=== PATIENT | female | born 1935 | race American Indian/Alaskan Native ===

== ENCOUNTER 2017-02-09 12:48 | Emergency (ER) | payer OTHER ==
[2017-02-09] MEDS ORDERED: HYDROCODONE/APAP 5/325 TAB PO ONE (12:54)
--- NOTE | 2017-02-09 12:58 | EDPHY ---
H & P HPI/ROS: HPI CHIEF COMPLAINT: Left hip pain, right knee pain status post fall a week ago. HISTORY OF PRESENT ILLNESS: This patient 81-year-old female, significant past medical history for COPD, AFib, chronic pain, presents to the emergency room with right knee pain and left hip pain after a mechanical trip and fall approximately a week ago. She is continue have pain. She is able to ambulate with a walker. EMS reports she is at her neurological baseline. She does take Aricept. Main complaint left hip pain and right knee pain. Past Medical History: Anemia, COPD hypertension, encephalopathy, Past Surgical History: No recent surgery Social History: Lives at [facility]. Family History: Noncontributory ROS REVIEW OF SYSTEMS: A comprehensive 10 point review of systems is otherwise negative aside from elements mentioned in the history of present illness. Exam Constitutional appears well nontoxic, triage nursing summary reviewed, vital signs reviewed, awake/alert. Eyes normal conjunctivae and sclera, EOMI, PERRLA. HENT normal inspection, atraumatic, moist mucus membranes, no epistaxis, neck supple/ no meningismus, no raccoon eyes. Respiratory clear to auscultation bilaterally, normal breath sounds, no respiratory distress, no wheezing. Cardiovascular rate normal, regular rhythm, no murmur, no edema, distal pulses normal. Gastrointestinal soft, non-tender, no rebound, no guarding, normal bowel sounds, no distension, no pulsatile mass. Genitourinary no CVA tenderness. Musculoskeletal mild tender palpation left lateral hip, and tender palpation over the anterior right knee, no significant signs of trauma exam, right leg is neurovascular intact full range of motion, left leg neurovascular intact warm, good cap refill. Good pulse. no calf swelling, no tenderness of extremities, no meningismus, good pulses, neurovascularly intact. Skin pink, warm, & dry, no rash, skin atraumatic. Neurologic awake, alert and oriented x 3, AAOx3, moves all 4 extremities equally, motor intact, sensory intact, CN II-XII intact, normal cerebellar, normal vision, normal speech. Psychiatric normal mood/affect. Heme/Lymph/Immune no lymphadenopathy. Differential Diagnosis: Includes but is not limited to in a particular order hip fracture, hip contusion, right knee fracture, right knee contusion. Medical Decision Making: Plan for this patient [place] p. o., and x-ray right knee and left hip. Re-evaluation: 1409: Re-evaluation at this time patient resting comfortably. I reviewed the x -rays of the hip and knee. There is hardware present. This is from previous surgeries. I do not appreciate any acute new fracture. I feel that she can go home. She appears well nontoxic she is eating here in the emergency room. No evidence of significant trauma on exam. Or x-rays. Source: Patient, EMS - Personal History Tetanus Vaccine Date: 2002 - Medical/Surgical History Hx Asthma: No Hx Chronic Respiratory Disease: Yes Hx Diabetes: No Hx Cardiac Disease: Yes Hx Renal Disease: No Hx Cirrhosis: No Hx Alcoholism: No Hx HIV/AIDS: No Hx Splenectomy or Spleen Trauma: No Other PMH: pacemaker, afib, COPD, home O2, chronic pain, spinal surgrey, constipation, hyperlipidemia, pulmonary hypertension, HYPOTHYROID, anxiety orthostatic hypotension, DVT, gait instability, C. difficile colitis - Social History Smoking Status: Former smoker Constitutional: Initial Vital Signs Temperature (C) 36.9 C 02/09/17 12:58 Heart Rate 78 02/09/17 12:58 Respiratory Rate 16 02/09/17 12:58 Blood Pressure 118/76 02/09/17 12:58 O2 Sat (%) 97 02/09/17 12:58 O2 Delivery Mode Nasal Cannula O2 (L/minute) 2 Allergies/Adverse Reactions: Ztlsohe-Amu-Cwz Reductase Inhibitor Allergy (Unknown, Verified 05/18/16 05:34) Sulfa (Sulfonamide Antibiotics) Allergy (Unknown, Verified 05/18/16 05:34) atorvastatin calcium [From Lipitor] Allergy (Verified 05/18/16 05:34) ciprofloxacin [From Cipro] Allergy (Verified 05/18/16 05:34) ciprofloxacin HCl [From Cipro] Allergy (Verified 05/18/16 05:34) Estrogens Allergy (Verified 05/18/16 05:34) Nitrofuran Analogues Allergy (Verified 05/18/16 05:34) nitrofurantoin Allergy (Verified 05/18/16 05:34) potassium Allergy (Verified 05/18/16 05:34) LEG CRAMPS,GI Quinolones Allergy (Verified 05/18/16 05:34) Home Medications: Medication Instructions Recorded Docusate Sodium [Colace 100 MG (*)] 100 mg PO BID 12/12/14 Ondansetron Odt [Zofran Odt 4 mg 8 mg PO Q8 PRN 12/12/14 (*)] Cholecalciferol Vit D3 [Vitamin D3 1,000 unit PO DAILY 01/02/15 (*)] Polyethylene Glycol 3350 [Miralax 17 gm PO BID 04/06/15 17 gm (*)] Ascorbic Acid [Vitamin C 500 mg 500 mg PO DAILY 09/28/15 (*)] Acetaminophen [Tylenol 325mg (*)] 650 mg PO Q6 PRN #0 tab 10/03/15 DULoxetine [Cymbalta 60 MG (*)] 60 mg PO HS 04/21/16 Gabapentin [Neurontin] 600 mg PO TID 04/21/16 Tobramycin 0.3% [Tobrex 0.3% opht 2 drops LEFTEYE Q4WA 04/21/16 drops (*)] Cephalexin [Keflex (*)] 500 mg PO TID #0 cap 04/23/16 Levothyroxine [Synthroid 112 mcg 112 mcg PO DAILY AT 6AM #0 tab 04/23/16 (*)] ALPRAZolam [Xanax 1 MG (*)] 0.5 mg PO HS PRN #0 tab 05/19/16 HYDROmorphone HCL [Dilaudid 4 mg 4 mg PO Q6HRS PRN #0 tab 05/19/16 (*)] Medical Decision Making - Data Points Medications Given: Discontinued Medications Hydrocodone Bitart/Acetaminophen ([place] 5/325) 1 tab PO EDNOW ONE Stop: 02/09/17 12:55 Last Admin: 02/09/17 13:03 Dose: 1 tab Departure - Departure Disposition: Home, Routine, Self-Care Clinical Impression: Multiple contusions Fall Qualifiers: Encounter type: initial encounter Qualified Code(s): W19.XXXA - Unspecified fall, initial encounter Condition: Good Instructions: Fall Prevention (ED), Contusion in Adults (ED) Additional Instructions: The x-ray of the right knee and left hip are unremarkable for fracture. Referrals: Patient,NotPresent [Unknown] - As per Instructions
[2017-02-09 13:00] VITALS: RESP 16
[2017-02-09 14:53] VITALS: BP 155/78; PULSE 81; TEMP 97.7; O2SAT 98
== END 2017-02-09 14:53 | disposition home or self-care (01) ==
LOC: EDUNIT#
DX: S80.01XA Contusion of right knee, initial encounter (principal); S70.02XA Contusion of left hip, initial encounter; I10 Essential (primary) hypertension; J44.9 Chronic obstructive pulmonary disease, unspecified; Z95.0 Presence of cardiac pacemaker; Z87.891 Personal history of nicotine dependence; W01.0XXA Fall on same level from slipping, tripping and stumbling without subsequent striking against object, initial encounter

== ENCOUNTER 2017-05-30 20:25 | Observation (INO) | payer OTHER ==
[2017-05-30] MEDS ORDERED: LIDOCAINE 2% JELLY 20 ML (UROJECT) ONE (20:58)
[2017-05-30] MEDS ORDERED: BISACODYL 10 MG SUPP PR PRN (23:15)
[2017-05-30] MEDS ORDERED: MAGNESIUM HYDROXIDE 30 ML UDCUP PO PRN (23:15)
[2017-05-30] MEDS ORDERED: ONDANSETRON 4 MG/2 ML VIAL IVP PRN (23:15)
[2017-05-30] MEDS ORDERED: LACTULOSE 20 GM/30 ML UDCUP PO PRN (23:15)
[2017-05-30] MEDS ORDERED: ACETAMINOPHEN 325 MG TAB PO PRN (23:15)
[2017-05-30] MEDS ORDERED: ALPRAZolam 0.25 MG TAB PO PRN (23:19)
--- NOTE | 2017-05-30 23:51 | EDPHY ---
H & P Stated Complaint: constipation, abd pain HPI/ROS: Chief complaint: Constipation History of present illness: This is an 82-year-old female who presents to the emergency department with family for constipation. Patient has a long history of problems with her bowel movements. 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 She does not normally go every day. She usually has to use multiple supplements including Colace and MiraLax to have a bowel movement. However she has not had a bowel movement in the last 9 days. She reports significant discomfort in the abdomen and rectal area. She has attempted to pull some stool out on her own at home but this has not resolve the problem. She denies other associated signs or symptoms including no fevers , no nausea or vomiting. Review of systems: A 10 point review of systems was obtained and other than described above was negative - Personal History Current Tetanus/Diphtheria Vaccine: Unsure Tetanus Vaccine Date: 2002 - Medical/Surgical History Hx Asthma: No Hx Chronic Respiratory Disease: Yes Hx Diabetes: No Hx Cardiac Disease: Yes Hx Renal Disease: No Hx Cirrhosis: No Hx Alcoholism: No Hx HIV/AIDS: No Hx Splenectomy or Spleen Trauma: No Other PMH: pacemaker, afib, COPD, home O2, chronic pain, spinal surgrey, constipation, hyperlipidemia, pulmonary hypertension, HYPOTHYROID, anxiety orthostatic hypotension, DVT, gait instability, C. difficile colitis - Social History Smoking Status: Former smoker Constitutional: Initial Vital Signs Temperature (C) 36.9 C 05/30/17 20:29 Heart Rate 86 05/30/17 20:29 Respiratory Rate 18 05/30/17 20:29 Blood Pressure 141/80 H 05/30/17 20:29 O2 Sat (%) 93 05/30/17 20:29 O2 Delivery Mode Nasal Cannula O2 (L/minute) 2 Allergies/Adverse Reactions: Zipdyrk-Tdi-Vol Reductase Inhibitor Allergy (Unknown, Verified 05/30/17 20:32) Sulfa (Sulfonamide Antibiotics) Allergy (Unknown, Verified 05/30/17 20:32) atorvastatin calcium [From Lipitor] Allergy (Verified 05/30/17 20:32) ciprofloxacin [From Cipro] Allergy (Verified 05/30/17 20:32) ciprofloxacin HCl [From Cipro] Allergy (Verified 05/30/17 20:32) Estrogens Allergy (Verified 05/30/17 20:32) Nitrofuran Analogues Allergy (Verified 05/30/17 20:32) nitrofurantoin Allergy (Verified 05/30/17 20:32) potassium Allergy (Verified 05/30/17 20:32) LEG CRAMPS,GI Quinolones Allergy (Verified 05/30/17 20:32) Home Medications: Medication Instructions Recorded Docusate Sodium [Colace 100 MG (*)] 100 mg PO BID 12/12/14 Ondansetron Odt [Zofran Odt 4 mg 8 mg PO Q8 PRN 12/12/14 (*)] Cholecalciferol Vit D3 [Vitamin D3 1,000 unit PO DAILY 01/02/15 (*)] Polyethylene Glycol 3350 [Miralax 17 gm PO BID 04/06/15 17 gm (*)] Ascorbic Acid [Vitamin C 500 mg 500 mg PO DAILY 09/28/15 (*)] Acetaminophen [Tylenol 325mg (*)] 650 mg PO Q6 PRN #0 tab 10/03/15 DULoxetine [Cymbalta 60 MG (*)] 60 mg PO HS 04/21/16 Gabapentin [Neurontin] 600 mg PO TID 04/21/16 Tobramycin 0.3% [Tobrex 0.3% opht 2 drops LEFTEYE Q4WA 04/21/16 drops (*)] Cephalexin [Keflex (*)] 500 mg PO TID #0 cap 04/23/16 Levothyroxine [Synthroid 112 mcg 112 mcg PO DAILY AT 6AM #0 tab 04/23/16 (*)] ALPRAZolam [Xanax 1 MG (*)] 0.5 mg PO HS PRN #0 tab 05/19/16 HYDROmorphone HCL [Dilaudid 4 mg 4 mg PO Q6HRS PRN #0 tab 05/19/16 (*)] Medical Decision Making - Diagnostics Imaging Results: Imaging Impressions Abdomen X-Ray 05/30/17 22:32 Impression: 1. Query constipation. 2. See above report for additional findings. Imaging: I viewed and interpreted images myself Procedures: Procedure: Fecal disimpaction. Patient presents constipated. Rectal exam reveals significant impaction. Verbal consent is obtained. Uro jet of lidocaine is instilled for comfort. Significant stool is removed with my gloved fingers. The procedure caused patient significant discomfort. ED Course/Re-evaluation: Patient discussed with my primary supervising physician Dr. Liana Zayas. Patient presents to the emergency department for severe constipation. She is nontoxic. Rectal exam does reveal severe impaction. I have performed extensive disimpaction and removed and extensive amount of stool. However it has gotten to the point that patient can no longer tolerate the pain of disimpaction despite using Uro jets with lidocaine. She is given soapsuds enema and has a large bowel movement. Still significant stool noted in the rectal vault. I do not believe she can be appropriately disimpacted and cleared out in the emergency department. She is in significant discomfort. She will be admitted to the hospitalist service for further care. The plan has been discussed with the patient who voiced understanding and agreement with it. Differential Diagnosis: Included but not limited to constipation, obstipation, fecal impaction, bowel obstruction Departure - Departure Disposition: [facility] Acute Clinical Impression: Constipated Qualifiers: Constipation type: unspecified constipation type Qualified Code(s): K59.00 - Constipation, unspecified Condition: Good
[2017-05-31 04:51] LABS: % IMMATURE GRANULYOCYTES 0.3 % (0.0-1.1); ABSOLUTE IMMATURE GRANULOCYTES 0.01 10^3/uL (0.00-0.10); ADD DIFF? NO; ADD MORPH? NO; ADD SCAN? NO; ATYPICAL LYMPHOCYTE FLAG 20 (0-99); FRAGMENT RBC FLAG 0 (0-99); HEMATOCRIT 29.4 % (38.0-47.0); HEMOGLOBIN 9.5 g/dL (12.6-16.3); LEFT SHIFT FLG 0 (0-99); LIPEMIA HEMOLYSIS FLAG 80 (0-99); MEAN CELL HEMOGLOBIN 29.9 pg (27.9-34.1); MEAN CELL HEMOGLOBIN CONCENTR. 32.3 g/dL (32.4-36.7); MEAN CELL VOLUME 92.5 fL (81.5-99.8); MEAN PLATELET VOLUME 9.4 fL (8.7-11.7); PLATELET CLUMPS FLAG 0 (0-99); PLATELET COUNT 101 10^3/uL (150-400); RED BLOOD CELL COUNT 3.18 10^6/uL (4.18-5.33)
[2017-05-31 05:07] LABS: ALANINE AMINOTRANSFERASE 28 IU/L (9-52); ALBUMIN 3.6 g/dL (3.5-5.0); ALKALINE PHOSPHATASE 72 IU/L (38-126); ANION GAP 12 mEq/L (8-16); ASPARTATE AMINOTRANSFERASE 21 IU/L (14-46); BILIRUBIN,TOTAL 0.9 mg/dL (0.1-1.4); CARBON DIOXIDE 33 mEq/l (22-31); CHLORIDE 101 mEq/L (97-110); CREATININE 0.8 mg/dL (0.6-1.0); GLOMERULAR FILTRATION RATE > 60; GLUCOSE 92 mg/dL (70-100); POTASSIUM 4.1 mEq/L (3.5-5.2); SODIUM 146 mEq/L (134-144); TOTAL PROTEIN 5.8 g/dL (6.3-8.2)
[2017-05-31 05:16] VITALS: RESP 16
[2017-05-31] MEDS ORDERED: SENNOSIDES/DOCUSATE SODIUM TAB PO SCH (09:00)
[2017-05-31] MEDS ORDERED: ENOXAPARIN 40 MG/0.4 ML SYR SC SCH (09:00)
--- NOTE | 2017-05-31 09:19 | GHP ---
[f rep st] HISTORY AND PHYSICAL DATE OF ADMISSION: 05/30/2017 DATE OF SERVICE: 05/31/2017 SOURCE: Patient provides history, appears reliable. Patient's case was discussed with ED provider and EMR was also reviewed. CHIEF COMPLAINT: Constipation. HISTORY OF PRESENT ILLNESS: This is a very pleasant 82-year-old female with past medical history significant for chronic constipation with a history of several spine surgeries for resection of schwannoma, atrial fibrillation status post pacer, pulmonary hypertension, COPD on chronic oxygen supplementation, chronic pain, hyperlipidemia, hypothyroidism, anxiety who presents to the emergency department today with complaints of worsening generalized abdominal pain. Patient reports she has not had a bowel movement in 9 days. She does have a history of chronic constipation. She has not had any fevers, chills, but has had occasional nausea with worsening abdominal distention and generalized pain and aching. The patient denies any previous history of GI bleeding. No hematemesis. Has had occasional chills but no fevers. Patient is on a chronic bowel regimen consisting of MiraLAX 2 to 3 times per day, Colace twice a day, but has struggled with constipation for multiple years. In the emergency department, the patient was noted to be significantly impacted. ER provider attempted digital disimpaction for some length of time with success of removal of a little bit of stool. The patient subsequently underwent multiple enemas in the emergency department, soapsuds enema with a large bowel movement and improvement in her abdominal pain. The patient continued to have a significant amount of stool remaining on imaging and patient is admitted for assistance with further bowel regimen and enemas. REVIEW OF SYSTEMS: Significant for occasional chills, no fevers, and headache without any numbness, tingling, or focal deficits. Otherwise, remainder review of systems negative except as noted above. ALLERGIES: Multiple including statins, ciprofloxacin, estrogens, nitrofurantoin , potassium, quinolones. HOME MEDICATIONS: As per EMR. Tobramycin 0.3% drops ophthalmic in the left eye every 4 hours, MiraLAX 17 g p.o. 2 to 3 times daily p.r.n., Zofran ODT 8 mg p.o. q.8 hours p.r.n., levothyroxine 12 mcg p.o. daily in the morning, Dilaudid 4 mg p.o. q.6 hours p.r.n., gabapentin 600 mg p.o. t.i.d., docusate 100 mg p.o. b.i.d., duloxetine 60 mg p.o. q.h.s., vitamin D3 1000 units p.o. daily. Keflex 500 mg p.o. t.i.d., ascorbic acid 500 mg p.o. daily, Tylenol 325, 650 mg p.o. q.6 hours p.r.n. Please note, med rec has not yet been reconciled by the pharmacy. PAST MEDICAL HISTORY: Significant for: 1. Atrial fibrillation, chronic, status post pacer. 2. Pulmonary hypertension. 3. COPD with chronic oxygen dependence 2 L/minute. 4. Chronic pain with chronic narcotic use. 5. Chronic constipation, opiate induced versus possibly even neurogenic bowel. 6. History of schwannoma status post resection and revision. 7. Hyperlipidemia. 8. Hypothyroidism. 9. Anxiety. 10. Orthostatic hypotension. 11. History of DVT. 12. History of C diff colitis. 13. Peripheral neuropathy. PAST SURGICAL HISTORY: Significant for spine surgery for resection of a schwannoma x2, pacer placement. FAMILY HISTORY: Patient is adopted. She does not know her family history. She does have 2 adult children, 60 and 57, who are both healthy without medical issues that she is aware of. SOCIAL HISTORY: Patient lives in assisted living facility [place] [facility]. She does not smoke, drink, or do drugs. She quit smoking several years ago and has 20- pack-year history. CODE STATUS: Extensive discussion with the patient. She desires to be a DNR/ DNI, but she acknowledges that her children would not appreciate this decision. She is interested in considering it and formally putting it into advance directives. However, she would prefer to leave her code status as full at this time until she can have further discussions with provider and her children regarding her wishes to be a DNR, so that they are aware of and respectful of her wishes to not have any aggressive resuscitation. PHYSICAL EXAMINATION: VITAL SIGNS: Upon arrival to the emergency department, blood pressure 141/80, heart rate 86, respiratory rate 18, O2 saturation 93% on 3 L by nasal cannula with temperature 36.9. Vitals current available at time of interview: Blood pressure 117/78, heart rate 77, respiratory rate 16, O2 saturation 94% on 2 L by nasal cannula, temperature 36.9: GENERAL: No acute distress. Very pleasant, obese elderly female, is lying quietly in bed. She appears chronically ill, but awake and interactive. HEENT: Normocephalic, atraumatic. Eyes: Extraocular muscles are intact. Pupils equal, round, reactive to light bilaterally and symmetric. No scleral icterus or conjunctival injection. ENT: Mucous membranes appear moist. No oropharyngeal erythema or exudates. NECK: Supple, trachea midline. CV: Slightly distant heart sounds secondary to body habitus. Regular rate and rhythm. RESPIRATORY: Lungs are clear to auscultation bilaterally. No wheezes, rales, or rhonchi. Unlabored breathing. ABDOMEN: Obese, soft, but full. Minimal discomfort to palpation in the lower abdomen, but no rebound, guarding, or masses appreciated. : No Dickens in place. No suprapubic tenderness to palpation. EXTREMITIES: Patient with 2+ pitting edema bilateral lower feet and ankles and lesser degree on her legs bilaterally. MUSCULOSKELETAL: Patient with generalized deconditioning and weakness. Moves all extremities while lying in bed. NEURO: Cranial nerves 2-12 intact, symmetric bilaterally. Patient is awake, alert, and oriented x3. No facial drooping. PSYCH: Patient is a little bit anxious, but pleasant and cooperative. Thought process, content, and questions are all appropriate. LABORATORY STUDIES: WBC 3.48, H and H 9.5 and 29.4, MCV 92.5, platelet count is 101, no bands. Sodium is 146, potassium 4.1, chloride 101, CO2 33, anion gap 12, BUN 12, creatinine 0.8, GFR greater than 60, glucose 92, calcium 9.0, total bilirubin 0.9, ALT is 28, AST is 21, alkaline phosphatase is 72, total protein is 5.8, albumin 3.6. TSH is 4.0. Abdominal x-ray image reviewed myself and report moderate fecal material seen throughout the colon, most pronounced left colon, sigmoid. Minimal small-bowel dilation also identified. No free air seen. Left-sided pelvic calcification, presumably fibroid. Bilateral hip pinning. Degenerative changes noted in the spine. Leads from cardiac pacemaker. ASSESSMENT AND PLAN: Very pleasant 82-year-old female with history of chronic constipation who presents with complaints of abdominal pain, distention, and constipation. 1. Fecal impaction and constipation status post manual disimpaction followed by enema with large bowel movement obtained with some improvement in symptoms. Patient continues to have significant amount of residual stool. She was not able to tolerate any further enemas. However, the patient has been admitted for further bowel regimen and additional bowel movements. There is no evidence of an obstruction at this time, although there is some minimal dilation of small bowel. The patient does not have any clinical findings of obstruction at this time. We will continue with aggressive bowel regimen. Instead of MiraLAX , will transition to lactulose. Continue with docusate and schedule enemas. However, patient is hesitant to consider further enemas at this time. Patient with a history of chronic opiate use and history of spinal surgery. History of chronic constipation versus opiate-induced constipation versus neurogenic bowel. The patient may benefit from consideration with Amitiza, but I advised the patient that given that she has not yet had additional bowel movements, it is not recommended that we proceed with initiation of this therapy. The patient should follow up with her primary care provider or consider evaluation with gastrointestinal physician to that she can be followed for any further changes in her bowel regimen. 2. Abdominal pain has improved. Continue with bowel prep as noted above. 3. History of chronic pain. Hold opiates at this time. Patient appears comfortable otherwise. 4. History of chronic obstructive pulmonary disease on chronic oxygen 2 L/ minute baseline. No exacerbation noted. 5. Atrial fibrillation status post pacer. Rate at this time is controlled. 6. Pulmonary hypertension. Oxygen supplementation as noted above. 7. Hypothyroidism. Continue levothyroxine supplementation. 8. Anxiety. Supportive care. 9. Peripheral neuropathy. Can resume patient's home medications as needed with exception of the opiates. 10. Pancytopenia. Patient with mild leukocytosis, anemia, and thrombocytopenia. This does appear to be chronic in nature. Etiology is unclear. The patient is not on any anticoagulation. Prophylactic Lovenox initially ordered. We will hold this for further dosing and monitor. No evidence of active bleeding. 11. Hypernatremia, minimally elevated. Encourage oral hydration, free water intake. 12. Elevated CO2, not surprising in setting of chronic obstructive pulmonary disease. Patient without any evidence of exacerbation. We will monitor closely. 13. Fluid, electrolyte, nutrition. Encourage oral hydration, electrolyte replacement p.r.n. 14. Prophylaxis sequential compression devices. Holding anticoagulation secondary to pancytopenia, thrombocytopenia. 15. Code status. Again, patient desires to be a do not resuscitate, but she is hesitant secondary to considering the feelings of her children. She does not want to change her code status formally until she has had a chance to further discuss with the provider and her children so that they are aware of her wishes, as she feels they would not take her decision seriously. I did encourage the patient to consider completing her advance directive formally and assigning a per medical power of banking attorney who would be respectful of her wishes. 16. Disposition. Patient has been admitted to observation on the medical floor. Anticipate possible discharge in the next 24 hours if can achieve appropriate and consistent bowel movements. /[id number]/MODL MTDD
[2017-05-31 09:46] VITALS: BP 119/73; PULSE 88; TEMP 98; O2SAT 92
[2017-05-31] MEDS ORDERED: HYDROmorphONE/DILAUDID 4 MG TAB PO PRN (10:04)
[2017-05-31] MEDS ORDERED: ALPRAZolam 1 MG TAB PO PRN (10:04)
[2017-05-31] MEDS ORDERED: ONDANSETRON DISINTEGRATING 4 MG TAB PO PRN (10:04)
[2017-05-31] MEDS ORDERED: POLYETHYLENE GLYCOL 3350 17 GM PKT PO PRN (10:04)
--- NOTE | 2017-05-31 10:10 | HOSPPROG ---
Hospitalist Progress Note Assessment/Plan: 82-year-old with chronic constipation and multiple medical issues is admitted with severe obstipation. She had significant D compaction in the emergency department, but still has stool last. Pt seen for first time 05/31/2017 #. Constipation: * Continue bowel protocol * Follow-up abdominal flat plate, Still shows significant stool in vault. * Pt will need ongoing care here to evacuate stool given significant amt of stool and multiple co-morbidities. Will need additional midnight stay. # hypothyroidism: Currently on replacement with TSH normal. Will continue current dose could consider increasing slightly if remains elevated. This can be done as an outpatient # chronic pain with chronic narcotic dependence. Likely contributing significantly to her ongoing constipation. * Continue medication will likely need ongoing bowel protocol as outpatient. # atrial fibrillation: Status post pacemaker placement # anxiety # hyperlipidemia # COPD with chronic respiratory failure on 2 L oxygen dispo: Pt lives with daughter and has dementia. She has chronic diarrhea and multiple co morbidities and given the amt of stool present would benefit from additional midnight stay to evacuate her bowels. Subjective: Still with some abdominal discomfort. She had out of evacuation overnight per nursing. No chest pain short breath no nausea vomiting Objective: Vital Signs Temp Pulse Resp BP Pulse Ox 36.7 C 88 16 119/73 92 05/31/17 09:44 05/31/17 09:44 05/31/17 09:44 05/31/17 09:44 05/31/17 09:44 Laboratory Results 05/31/17 04:05 05/31/17 04:05 05/30/17 05/31/17 06/01/17 05:59 05:59 05:59 Intake Total 300 Balance 300 - Physical Exam Constitutional: no apparent distress, chronically ill appearing Cardiovascular: regular rate and rhythym Respiratory: no respiratory distress, clear to auscultation, reduced air movement Gastrointestinal: normoactive bowel sounds, no palpable masses, tenderness (Mild ), No guarding, No rebound, No distension ICD10 Worksheet Patient Problems: Problems Problem Status Onset Constipated Acute Afib - Atrial fibrillation Active Falls Active Hypothyroidism Active Chronic Disease Mgmt/Transitional Care Acute Chronic anemia Acute Chronic pain Acute Dehydration Acute Hip pain Acute Pneumonia Acute Weakness Acute Increased lipid Chronic Low back pain Chronic Pulmonary emphysema Chronic
[2017-05-31] MEDS ORDERED: LEVOTHYROXINE 137 MCG TAB PO SCH (10:15)
[2017-05-31] MEDS ORDERED: BISACODYL 10 MG SUPP PR ONE (13:45)
--- NOTE | 2017-05-31 15:00 | GDS ---
[f rep st] DISCHARGE SUMMARY DIAGNOSES: 1. Chronic constipation. 2. Hypothyroidism. 3. Chronic pain with chronic narcotic dependency. 4. Atrial fibrillation, status post pacemaker placement. 5. Anxiety. 6. Dyslipidemia. 7. Chronic obstructive pulmonary disease with chronic respiratory failure. 8. Alzheimer's dementia. HOSPITAL COURSE: The patient is an 82-year-old with a history of chronic pain, chronic narcotic depe ndency and chronic constipation. She currently lives at home with her daughter. She was admitted wi no BM in 9 days, and worsening abdominal distention. On admission, she was noted to have a large fecal impaction and was disimpacted in the emergency department, with resultant large stool and impro vement in her abdominal pain. Followup abdominal x-ray showed more stool, so [facility] on a bowel protocol, and given lactulose and suppositories. She continued to have a larg e amount of BMs overnight. Followup abdominal x-ray again showed stool, so she had more lactulose an d suppository given, with another extremely large bowel movement noted. At this point, the patient's abdominal exam is fairly benign, and although she complains of ongoing chronic pain, I suspect this is her baseline. She will be discharged back home and resume all of her usual medications, with the addition of lactulose 20 g daily. She can increase this to b.i.d. on an as needed basis. CONDITION ON DISCHARGE: Good. She is quite comfortable, with a soft belly. She is afebrile. Blood pressure 119/73, with a heart rate of 88. She is 92% on her chronic 2 L nasal cannula. DISCHARGE MEDICATIONS: Please see discharge medication form. She will resume her home medications a nd lactulose will be sent to her pharmacy. FOLLOWUP INSTRUCTIONS: She should follow up with Dr. Florez post hospitalization. /[id number]/MODL
[2017-05-31] MEDS ORDERED: GABAPENTIN 300 MG CAP PO SCH (16:00)
[2017-05-31] MEDS ORDERED: LACTULOSE 20 GM/30 ML UDCUP PO SCH (16:00)
[2017-05-31] MEDS ORDERED: DULoxetine 60 MG CAP PO SCH (21:00)
[2017-06-01] MEDS ORDERED: CHOLECALCIFEROL VIT D3 1,000 UNITS TAB PO SCH (09:00)
[2017-06-01] MEDS ORDERED: ASCORBIC ACID 500 MG TAB PO SCH (09:00)
== END 2017-05-31 15:55 | disposition home or self-care (01) ==
LOC: EDUNIT# → F2W 05-31 01:25
PROVIDERS: ADMIT Family Medicine; ATTEND Family Medicine
DX: K59.00 Constipation, unspecified (principal); E03.9 Hypothyroidism, unspecified; G89.29 Other chronic pain; F11.20 Opioid dependence, uncomplicated; I48.91 Unspecified atrial fibrillation; F41.9 Anxiety disorder, unspecified; E78.5 Hyperlipidemia, unspecified; J44.1 Chronic obstructive pulmonary disease with (acute) exacerbation; J96.10 Chronic respiratory failure, unspecified whether with hypoxia or hypercapnia; G30.9 Alzheimer's disease, unspecified; F02.80 Dementia in other diseases classified elsewhere, unspecified severity, without behavioral disturbance, psychotic disturbance, mood disturbance, and anxiety; Z87.891 Personal history of nicotine dependence; Z88.2 Allergy status to sulfonamides; Z95.0 Presence of cardiac pacemaker
CPT/HCPCS: 74000; 74020; 97165; G0378; G8987; G8988

== ENCOUNTER 2017-06-12 04:35 | Emergency (ER) | payer OTHER ==
[2017-06-12 04:41] VITALS: PULSE 81; TEMP 97.9
--- NOTE | 2017-06-12 04:44 | EDPHY ---
H & P Stated Complaint: fall, L rib pain Time Seen by Provider: 06/12/17 04:40 HPI/ROS: Chief Complaint: Fall, left chest wall pain HPI: 82-year-old woman was getting out of bed to go the bathroom this morning when she tripped and fell against the wall. She struck her left side of her chest. She was able to lower herself to the floor. Family called 911. She is complaining of pain in her left lateral chest. EMS gave her 100 mcg of intranasal fentanyl with minimal relief. No cough. She did not hit her head. She had no loss of consciousness. Is been up and ambulating with assistance. No other complaints at this time. ROS: 10 point Review of Systems is negative except as noted in the HPI. Social History: No smoking, lives with her family Family History: non-contributory Physical Exam: Gen: Awake, Alert, No Distress HEENT: Nose: no rhinorrhea Eyes: PERRLA, EOMI Mouth: Moist mucosa Neck: Supple, no JVD Chest: She has tenderness in the left lateral ribs in the anterior axillary line, no step-offs,, lungs clear to auscultation Heart: S1, S2 normal, no murmur Abd: Soft, non-tender, no guarding Back: no CVA tenderness, no midline tenderness Ext: no edema, non-tender Skin: no rash Neuro: CN II-XII intact, Sensation grossly intact, Strength 5/5 in bilateral upper and lower extremities - Personal History Tetanus Vaccine Date: 2002 - Medical/Surgical History Hx Asthma: No Hx Chronic Respiratory Disease: Yes Hx Diabetes: No Hx Cardiac Disease: Yes Hx Renal Disease: No Hx Cirrhosis: No Hx Alcoholism: No Hx HIV/AIDS: No Hx Splenectomy or Spleen Trauma: No Other PMH: pacemaker, afib, COPD, home O2, chronic pain, spinal surgrey, constipation, hyperlipidemia, pulmonary hypertension, HYPOTHYROID, anxiety orthostatic hypotension, DVT, gait instability, C. difficile colitis - Social History Smoking Status: Former smoker Constitutional: Initial Vital Signs Temperature (C) 36.6 C 06/12/17 04:40 Heart Rate 81 06/12/17 04:40 Respiratory Rate 16 06/12/17 04:40 Blood Pressure 165/94 H 06/12/17 04:40 O2 Sat (%) 95 06/12/17 04:40 O2 Delivery Mode Nasal Cannula O2 (L/minute) 2 Allergies/Adverse Reactions: Slsjhqi-Wkq-Kiu Reductase Inhibitor Allergy (Unknown, Verified 06/12/17 04:42) Vomiting Sulfa (Sulfonamide Antibiotics) Allergy (Unknown, Verified 06/12/17 04:42) Itching atorvastatin calcium [From Lipitor] Allergy (Verified 06/12/17 04:42) ciprofloxacin [From Cipro] Allergy (Verified 06/12/17 04:42) ciprofloxacin HCl [From Cipro] Allergy (Verified 06/12/17 04:42) Estrogens Allergy (Verified 06/12/17 04:42) Nitrofuran Analogues Allergy (Verified 06/12/17 04:42) nitrofurantoin Allergy (Verified 06/12/17 04:42) potassium Allergy (Verified 06/12/17 04:42) LEG CRAMPS,GI Quinolones Allergy (Verified 06/12/17 04:42) Home Medications: Medication Instructions Recorded Docusate Sodium [Colace 100 MG (*)] 100 mg PO BID 12/12/14 Cholecalciferol Vit D3 [Vitamin D3 1,000 unit PO DAILY 01/02/15 (*)] Polyethylene Glycol 3350 [Miralax 17 gm PO BID PRN 04/06/15 17 gm (*)] Ascorbic Acid [Vitamin C 500 mg 500 mg PO DAILY 09/28/15 (*)] DULoxetine [Cymbalta 60 MG (*)] 60 mg PO HS 04/21/16 Gabapentin [Neurontin] 600 mg PO TID 04/21/16 ALPRAZolam [Xanax 1 MG (*)] 2 mg PO HS PRN 05/31/17 HYDROmorphone HCL [Dilaudid 4 mg 4 mg PO Q4H PRN 05/31/17 (*)] Lactulose 20 gm PO DAILY #1000 ml 05/31/17 Levothyroxine [Synthroid 137 mcg 137 mcg PO DAILY06 05/31/17 (*)] Ondansetron Odt [Zofran Odt 4 mg 4 mg PO Q6H PRN 05/31/17 (*)] Hydrocodone/Acetaminophen 1 - 2 each PO Q4-6PRN PRN #10 06/12/17 [Hydrocodon-Acetaminophen 5-325] tablet Medical Decision Making - Diagnostics Imaging Results: Chest x-ray is negative for acute pneumothorax or obvious rib fracture. Study interpreted by me. Imaging: I viewed and interpreted images myself ED Course/Re-evaluation: 82-year-old woman status post slip and fall with chest wall pain. No obvious rib fractures on her chest x-ray. Breath sounds are clear. She is satting 99% on her usual 2 L of oxygen. Will send her home with pain medicine, hydrocodone with acetaminophen, inside from tree. She will follow up with primary care physician in the next 2-3 days. She will return for worsening pain, difficulty breathing, fevers, chills, cough, or any other concerns. Departure - Departure Disposition: Home, Routine, Self-Care Clinical Impression: Chest wall pain Condition: Good Instructions: Chest Wall Pain (ED), Hydrocodone/Acetaminophen (By mouth) Additional Instructions: Use the breathing device every 10 min while awake. It is important to take pain medicine will you have pain in your ribs to prevent you from developing a pneumonia. Is important to take nice big breaths using the incentive spirometer device. Take pain medicine to likely to take deep breaths. Follow up with primary care physician in 2-3 days for further evaluation. Return to the emergency department for increasing pain, shortness of breath, fevers, chills, cough, or any other concerns. Referrals: Patient,NotPresent [Unknown] - As per Instructions Prescriptions: Hydrocodone/Acetaminophen [Hydrocodon-Acetaminophen 5-325] 1 - 2 each PO Q4- 6PRN PRN #10 tablet PRN Reason: Pain, Severe
[2017-06-12] MEDS ORDERED: HYDROCOD/APAP 5/325 PREPACK#6 BTL TAKEHOME ONE (05:43)
[2017-06-12 07:04] VITALS: BP 106/93; RESP 20; O2SAT 99
== END 2017-06-12 07:04 | disposition home or self-care (01) ==
LOC: EDUNIT#
DX: S29.9XXA Unspecified injury of thorax, initial encounter (principal); J44.9 Chronic obstructive pulmonary disease, unspecified; Z87.891 Personal history of nicotine dependence; Z95.0 Presence of cardiac pacemaker; W01.198A Fall on same level from slipping, tripping and stumbling with subsequent striking against other object, initial encounter

== ENCOUNTER 2017-07-13 14:20 | Emergency (ER) | payer OTHER ==
--- NOTE | 2017-07-13 15:08 | EDPHY ---
H & P Time Seen by Provider: 07/13/17 14:47 HPI/ROS: CHIEF COMPLAINT: Rash, not urinating HISTORY OF PRESENT ILLNESS: The patient is an 82 y/o female with dementia and recurrent urinary tract infections complaining of rash and not urinating. 2 day h/o itchy and generalized rash. Taking triamcinolone cream without relief. No new foods, medications more soaps. She also complains of decreased urination. She has a history of urinary incontinence and uses depends usually. She is unsure when she last urinated, but thinks that she urinated today. No pain with urination. Tolerating oral fluids well and drinking plenty of fluids. She had transient abdominal cramps this morning which have resolved. The patient is a poor historian due to dementia. Most of the history is through the patient's daughter. REVIEW OF SYSTEMS: A 10 point review of systems was performed and is negative with the exception of the elements mentioned in the history of present illness. Past Medical/Surgical History: Atrial fibrillation Schwannoma removal COPD, oxygen-dependent Chronic pain Pulmonary hypertension Dementia Social History: Lives in [place], daughter at bedside, retired Smoking Status: Former smoker Physical Exam: General Appearance: Alert, pleasant, poor short-term memory Eyes: Pupils equal and round, no conjunctival pallor or injection ENT, Mouth: Mucous membranes moist, no oral swelling Neck: Normal inspection, no stridor Respiratory: Lungs are clear to auscultation, no wheezing Cardiovascular: Regular rate and rhythm Gastrointestinal: Abdomen is soft and non-tender Neurological: A&O, nonfocal exam Skin: Generalized hives Extremities: Nontender, no pedal edema Psychiatric: Mood and affect normal Constitutional: Initial Vital Signs Temperature (C) 36.8 C 07/13/17 14:20 Heart Rate 73 07/13/17 14:20 Respiratory Rate 16 07/13/17 14:20 Blood Pressure 116/77 07/13/17 14:20 O2 Sat (%) 92 07/13/17 14:20 O2 Delivery Mode Room Air Allergies/Adverse Reactions: Hyhnxaa-Sty-Ubn Reductase Inhibitor Allergy (Unknown, Verified 06/12/17 04:42) Vomiting Sulfa (Sulfonamide Antibiotics) Allergy (Unknown, Verified 06/12/17 04:42) Itching atorvastatin calcium [From Lipitor] Allergy (Verified 06/12/17 04:42) ciprofloxacin [From Cipro] Allergy (Verified 06/12/17 04:42) ciprofloxacin HCl [From Cipro] Allergy (Verified 06/12/17 04:42) Estrogens Allergy (Verified 06/12/17 04:42) Nitrofuran Analogues Allergy (Verified 06/12/17 04:42) nitrofurantoin Allergy (Verified 06/12/17 04:42) potassium Allergy (Verified 06/12/17 04:42) LEG CRAMPS,GI Quinolones Allergy (Verified 06/12/17 04:42) Home Medications: Medication Instructions Recorded Docusate Sodium [Colace 100 MG (*)] 100 mg PO BID 12/12/14 Cholecalciferol Vit D3 [Vitamin D3 1,000 unit PO DAILY 01/02/15 (*)] Polyethylene Glycol 3350 [Miralax 17 gm PO BID PRN 04/06/15 17 gm (*)] Ascorbic Acid [Vitamin C 500 mg 500 mg PO DAILY 09/28/15 (*)] DULoxetine [Cymbalta 60 MG (*)] 60 mg PO HS 04/21/16 Gabapentin [Neurontin] 600 mg PO TID 04/21/16 ALPRAZolam [Xanax 1 MG (*)] 2 mg PO HS PRN 05/31/17 HYDROmorphone HCL [Dilaudid 4 mg 4 mg PO Q4H PRN 05/31/17 (*)] Lactulose 20 gm PO DAILY #1000 ml 05/31/17 Levothyroxine [Synthroid 137 mcg 137 mcg PO DAILY06 05/31/17 (*)] Ondansetron Odt [Zofran Odt 4 mg 4 mg PO Q6H PRN 05/31/17 (*)] Hydrocodone/Acetaminophen 1 - 2 each PO Q4-6PRN PRN #10 06/12/17 [Hydrocodon-Acetaminophen 5-325] tablet predniSONE 40 mg PO DAILY #8 tab 07/13/17 Medical Decision Making ED Course/Re-evaluation: The patient presents with hives for 2 days and urinary complaints. Benadryl 25mg orally gien for hives. Refuses prednisone. Warning signs of worsening allergic rxn given. Urinalysis indicates she is dehydrated but does not have a urinary tract infection. I feel she can be safely discharged. I discussed this with her and her family. They agree to this course of action. Follow-up instructions and return precautions given. Differential Diagnosis: Differential diagnosis for hives includes though it is not limited to laryngeal edema, bronchospasm, hypotension, angioedema. - Data Points Laboratory Results: Laboratory Results 07/13/17 15:37 07/13/17 15:37 07/13/17 07/13/17 07/13/17 15:37 15:37 15:37 WBC 4.06 10^3/uL 10^3/uL (3.80-9.50) RBC 3.68 10^6/uL L 10^6/uL (4.18-5.33) Hgb 10.8 g/dL L g/dL (12.6-16.3) Hct 33.1 % L % (38.0-47.0) MCV 89.9 fL fL (81.5-99.8) MCH 29.3 pg pg (27.9-34.1) MCHC 32.6 g/dL g/dL (32.4-36.7) RDW 13.3 % % (11.5-15.2) Plt Count 147 10^3/uL L 10^3/uL (150-400) MPV 9.6 fL fL (8.7-11.7) Neut % (Auto) 50.0 % % (39.3-74.2) Lymph % (Auto) 27.8 % % (15.0-45.0) [place] % (Auto) 8.1 % % (4.5-13.0) Eos % (Auto) 12.6 % H % (0.6-7.6) Baso % (Auto) 1.0 % % (0.3-1.7) Nucleat RBC Rel Count 0.0 % % (0.0-0.2) Absolute Neuts (auto) 2.03 10^3/uL 10^3/uL (1.70-6.50) Absolute Lymphs (auto) 1.13 10^3/uL 10^3/uL (1.00-3.00) Absolute Monos (auto) 0.33 10^3/uL 10^3/uL (0.30-0.80) Absolute Eos (auto) 0.51 10^3/uL H 10^3/uL (0.03-0.40) Absolute Basos (auto) 0.04 10^3/uL 10^3/uL (0.02-0.10) Absolute Nucleated RBC 0.00 10^3/uL 10^3/uL (0-0.01) Immature Gran % 0.5 % % (0.0-1.1) Immature Gran # 0.02 10^3/uL 10^3/uL (0.00-0.10) Sodium 142 mEq/L mEq/L (135-145) Potassium 4.1 mEq/L mEq/L (3.5-5.2) Chloride 100 mEq/L mEq/L (97-110) Carbon Dioxide 31 mEq/l mEq/l (22-31) Anion Gap 11 mEq/L mEq/L (8-16) BUN 28 mg/dL H mg/dL (7-23) Creatinine 1.3 mg/dL H mg/dL (0.6-1.0) Estimated GFR 39 Glucose 102 mg/dL H mg/dL (70-100) Calcium 9.2 mg/dL mg/dL (8.5-10.4) Urine Color ROXANA Urine Appearance HAZY Urine pH 5.0 (5.0-7.5) Ur Specific [place] 1.027 (1.002-1.030) Urine Protein 1+ H (NEGATIVE) Urine Ketones NEGATIVE (NEGATIVE) Urine Blood NEGATIVE (NEGATIVE) Urine Nitrate NEGATIVE (NEGATIVE) Urine Bilirubin NEGATIVE (NEGATIVE) Urine Urobilinogen 2.0 EU H EU (0.2-1.0) Ur Leukocyte Esterase NEGATIVE (NEGATIVE) Urine RBC 1-3 /hpf /hpf (0-3) Urine WBC 1-3 /hpf /hpf (0-3) Ur Epithelial Cells TRACE /lpf /lpf (NONE-1+) Urine Glucose NEGATIVE (NEGATIVE) Medications Given: Discontinued Medications Diphenhydramine HCl (Benadryl) 25 mg PO EDNOW ONE Stop: 07/13/17 16:31 Last Admin: 07/13/17 16:51 Dose: 25 mg Prednisone (Prednisone) 40 mg PO EDNOW ONE Stop: 07/13/17 16:30 Last Admin: 07/13/17 16:51 Dose: Not Given Departure - Departure Disposition: Home, Routine, Self-Care Clinical Impression: Hives, Dehydration Condition: Good Instructions: Dehydration (ED), Urticaria (ED) Additional Instructions: You do not have urinary tract infection today. On the urine test, it appears that you are dehydrated. Drink plenty of fluids. The rash is hives. Antihistamines can help calm the itchiness. Take Claritin 1 tablet in the morning and Benadryl at night while the rash persists. In addition I prescribed prednisone, which helps the rash resolve. Return for worsening rash, swelling, shortness of breath or any concerns. Referrals: Patient,NotPresent [Primary Care Provider] - As per Instructions Prescriptions: predniSONE 40 mg PO DAILY #8 tab Report Scribed for: Liana Zayas Report Scribed by: Noemi Rogers Date of Report: 07/13/17 Time of Report: 16:35 Physician Review and Approval Statement: 07/13/17 16:35 Portions of this note were transcribed by a medical collections specialist. I personally performed a history, physical exam, medical decision making, and confirmed accuracy of information the transcribed note.
[2017-07-13 15:17] VITALS: RESP 16; TEMP 98.2
[2017-07-13 15:47] LABS: PLATELET COUNT 147 10^3/uL (150-400)
[2017-07-13] MEDS ORDERED: predniSONE 20 MG TAB PO ONE (16:29)
[2017-07-13] MEDS ORDERED: diphenhydrAMINE 25 MG CAP PO ONE (16:30)
[2017-07-13 16:58] VITALS: BP 138/87; PULSE 83; O2SAT 95
== END 2017-07-13 17:05 | disposition home or self-care (01) ==
LOC: EDUNIT#
DX: L50.9 Urticaria, unspecified (principal); E86.0 Dehydration; J44.9 Chronic obstructive pulmonary disease, unspecified; Z87.891 Personal history of nicotine dependence

== ENCOUNTER 2017-08-20 21:42 | Inpatient (IN) | payer OTHER ==
--- NOTE | 2017-08-20 21:54 | CPEKG ---
Heart Rate: 95 RR Interval: 632 P-R Interval: 156 QRSD Interval: 100 QT Interval: 384 QTC Interval: 483 P [place]: 68 QRS [place]: -2 T Wave [place]: 29 EKG Severity - ABNORMAL ECG - EKG Impression: SINUS RHYTHM EKG Impression: LOW VOLTAGE THROUGHOUT EKG Impression: BORDERLINE INFERIOR Q WAVES EKG Impression: BORDERLINE R WAVE PROGRESSION, ANTERIOR LEADS EKG Impression: BORDERLINE T ABNORMALITIES, ANTERIOR LEADS Electronically Signed By: Serjio Gee 21-Aug-2017 12:47:04
[2017-08-20] MEDS ORDERED: NS 500 ML IV ONE (22:21)
--- NOTE | 2017-08-20 22:25 | EDPHY ---
H & P Stated Complaint: SOB Time Seen by Provider: 08/20/17 22:05 HPI/ROS: HPI The patient presents brought in by ambulance for shortness of breath which she has had for the last few days. This is associated with a productive cough and wheezing. At baseline the patient is on 3 L of nasal cannula for COPD. When paramedics arrived she was tachypneic with sats of 79-83 on her usual 3 L. She denies any chest pain. She does not have any fever, rhinorrhea, sore throat. She denies any sick contacts. She lives at home with her daughter. She is able to ambulate as usual with her walker. She has not been using any breathing treatments at home. She is not on any steroids currently. . REVIEW OF SYSTEMS Constitutional: No fever, no chills. Eyes: No discharge. ENT: No sore throat. Cardiovascular: No chest pain, no palpitations. Respiratory: See HPI Gastrointestinal: No abdominal pain, no vomiting. Genitourinary: No hematuria. Musculoskeletal: No back pain. Skin: No rashes. Neurological: No headache. PMHx: Atrial fibrillation, COPD Soc Hx: Lives at home with daughter PHYSICAL General Appearance: Alert, no distress Eyes: Pupils equal and round no pallor or injection ENT, Mouth: Mucous membranes moist Respiratory: Non-rebreather in place, sats about 93%, slightly tachypneic, no retractions, coarse breath sounds throughout all lung ring Cardiovascular: Regular rate and rhythm Gastrointestinal: Abdomen is soft and non-tender, no masses, bowel sounds normal Neurological: A&O, moves all extremities Skin: Warm and dry, no rashes Musculoskeletal: Neck is supple non tender Extremities: symmetrical, full range of motion Psychiatric: Patient is oriented X 3, there is no agitation Source: Patient, EMS Exam Limitations: Clinical condition - Personal History Tetanus Vaccine Date: 2002 - Medical/Surgical History Hx Asthma: No Hx Chronic Respiratory Disease: Yes Hx Diabetes: No Hx Cardiac Disease: Yes Hx Renal Disease: No Hx Cirrhosis: No Hx Alcoholism: No Hx HIV/AIDS: No Hx Splenectomy or Spleen Trauma: No Other PMH: pacemaker, afib, COPD, home O2, chronic pain, spinal surgrey, constipation, hyperlipidemia, pulmonary hypertension, HYPOTHYROID, anxiety orthostatic hypotension, DVT, gait instability, C. difficile colitis - Social History Smoking Status: Former smoker Constitutional: Initial Vital Signs Temperature (C) 36.4 C 08/20/17 21:46 Heart Rate 96 08/20/17 21:46 Respiratory Rate 18 08/20/17 21:46 Blood Pressure 101/73 08/20/17 21:46 O2 Sat (%) 99 08/20/17 21:46 O2 Delivery Mode Simple Mask O2 (L/minute) 5 Allergies/Adverse Reactions: Kwcpfel-Jnu-Elv Reductase Inhibitor Allergy (Unknown, Verified 06/12/17 04:42) Vomiting Sulfa (Sulfonamide Antibiotics) Allergy (Unknown, Verified 06/12/17 04:42) Itching atorvastatin calcium [From Lipitor] Allergy (Verified 06/12/17 04:42) ciprofloxacin [From Cipro] Allergy (Verified 06/12/17 04:42) ciprofloxacin HCl [From Cipro] Allergy (Verified 06/12/17 04:42) Estrogens Allergy (Verified 06/12/17 04:42) Nitrofuran Analogues Allergy (Verified 06/12/17 04:42) nitrofurantoin Allergy (Verified 06/12/17 04:42) potassium Allergy (Verified 06/12/17 04:42) LEG CRAMPS,GI Quinolones Allergy (Verified 06/12/17 04:42) Home Medications: Medication Instructions Recorded Docusate Sodium [Colace 100 MG (*)] 100 mg PO BID 12/12/14 Cholecalciferol Vit D3 [Vitamin D3 1,000 unit PO DAILY 01/02/15 (*)] Polyethylene Glycol 3350 [Miralax 17 gm PO BID PRN 04/06/15 17 gm (*)] Ascorbic Acid [Vitamin C 500 mg 500 mg PO DAILY 09/28/15 (*)] DULoxetine [Cymbalta 60 MG (*)] 60 mg PO HS 04/21/16 Gabapentin [Neurontin] 600 mg PO TID 04/21/16 ALPRAZolam [Xanax 1 MG (*)] 2 mg PO HS PRN 05/31/17 HYDROmorphone HCL [Dilaudid 4 mg 4 mg PO Q4H PRN 05/31/17 (*)] Lactulose 20 gm PO DAILY #1000 ml 05/31/17 Levothyroxine [Synthroid 137 mcg 137 mcg PO DAILY06 05/31/17 (*)] Ondansetron Odt [Zofran Odt 4 mg 4 mg PO Q6H PRN 05/31/17 (*)] Hydrocodone/Acetaminophen 1 - 2 each PO Q4-6PRN PRN #10 06/12/17 [Hydrocodon-Acetaminophen 5-325] tablet predniSONE 40 mg PO DAILY #8 tab 07/13/17 Medical Decision Making - Diagnostics Imaging Results: Imaging Impressions Chest X-Ray 08/20/17 22:21 Impression: 1. Left lower lobe pneumonia. 2. Recommend follow-up until clear. CT chest with IV contrast demonstrates 2 right-sided pulmonary emboli with left- sided large pleural effusion, discussed with Dr. Corbett of Radiology. Imaging: Discussed imaging studies w/ manager environmental services Radiologist, I viewed and interpreted images myself Differential Diagnosis: This is a an 82-year-old female with COPD on home oxygen, atrial fibrillation, brought in by ambulance for several days of shortness of breath and cough. She is hypoxic and slightly tachypneic. She has received prior to my assessment albuterol and Atrovent DuoNeb with some improvement in her symptoms. She is still requiring non-rebreather to keep saturations in the 90s. Differential diagnosis includes COPD exacerbation, pneumonia, influenza, PE. In the emergency department, patient received non-rebreather, nebs. She had received Solu-Medrol in the field. Chest x-ray showed left lower lobe pneumonia which is quite impressive. Patient was given azithromycin and ceftriaxone for community-acquired pneumonia. Labs returned and demonstrated elevated D-dimer. Because of this CT PE was performed which did indeed demonstrate right-sided pulmonary emboli with left-sided pleural effusion. It is possible that she developed PE and subsequently developed pneumonia. The patient is admitted to the ICU. Lovenox will be ordered by the hospitalist, Dr. Caballero. - Data Points Laboratory Results: Laboratory Results 08/20/17 23:30 08/20/17 23:30 08/20/17 08/20/17 08/20/17 23:30 23:30 23:30 WBC 4.01 10^3/uL 10^3/uL (3.80-9.50) RBC 3.77 10^6/uL L 10^6/uL (4.18-5.33) Hgb 10.8 g/dL L g/dL (12.6-16.3) Hct 34.6 % L % (38.0-47.0) MCV 91.8 fL fL (81.5-99.8) MCH 28.6 pg pg (27.9-34.1) MCHC 31.2 g/dL L g/dL (32.4-36.7) RDW 14.6 % % (11.5-15.2) Plt Count 132 10^3/uL L 10^3/uL (150-400) MPV 9.3 fL fL (8.7-11.7) Neut % (Auto) 76.9 % H % (39.3-74.2) Lymph % (Auto) 13.7 % L % (15.0-45.0) [place] % (Auto) 3.7 % L % (4.5-13.0) Eos % (Auto) 5.0 % % (0.6-7.6) Baso % (Auto) 0.7 % % (0.3-1.7) Nucleat RBC Rel Count 0.0 % % (0.0-0.2) Absolute Neuts (auto) 3.08 10^3/uL 10^3/uL (1.70-6.50) Absolute Lymphs (auto) 0.55 10^3/uL L 10^3/uL (1.00-3.00) Absolute Monos (auto) 0.15 10^3/uL L 10^3/uL (0.30-0.80) Absolute Eos (auto) 0.20 10^3/uL 10^3/uL (0.03-0.40) Absolute Basos (auto) 0.03 10^3/uL 10^3/uL (0.02-0.10) Absolute Nucleated RBC 0.00 10^3/uL 10^3/uL (0-0.01) Immature Gran % 0.0 % % (0.0-1.1) Immature Gran # 0.00 10^3/uL 10^3/uL (0.00-0.10) D-Dimer 2.74 ug/mLFEU H ug/mLFEU (0.00-0.50) VBG Lactic Acid Sodium 141 mEq/L mEq/L (135-145) Potassium 3.4 mEq/L L mEq/L (3.5-5.2) Chloride 98 mEq/L mEq/L (97-110) Carbon Dioxide 28 mEq/l mEq/l (22-31) Anion Gap 15 mEq/L mEq/L (8-16) BUN 15 mg/dL mg/dL (7-23) Creatinine 0.7 mg/dL mg/dL (0.6-1.0) Estimated GFR > 60 Glucose 144 mg/dL H mg/dL (70-100) Calcium 8.6 mg/dL mg/dL (8.5-10.4) Troponin I 0.092 ng/mL H ng/mL (0.000-0.034) NT-Pro-B Natriuret Pep 148 pg/mL pg/mL (0-450) Procalcitonin 0.08 ng/mL ng/mL (0.02-0.10) Nasal Influenza A PCR Nasal Influenza B PCR RSV (PCR) 08/20/17 08/20/17 23:30 23:00 WBC RBC Hgb Hct MCV MCH MCHC RDW Plt Count MPV Neut % (Auto) Lymph % (Auto) [place] % (Auto) Eos % (Auto) Baso % (Auto) Nucleat RBC Rel Count Absolute Neuts (auto) Absolute Lymphs (auto) Absolute Monos (auto) Absolute Eos (auto) Absolute Basos (auto) Absolute Nucleated RBC Immature Gran % Immature Gran # D-Dimer VBG Lactic Acid 1.0 mmol/L mmol/L (0.7-2.1) Sodium Potassium Chloride Carbon Dioxide Anion Gap BUN Creatinine Estimated GFR Glucose Calcium Troponin I NT-Pro-B Natriuret Pep Procalcitonin Nasal Influenza A PCR NEGATIVE FOR FLU A (NEGATIVE) Nasal Influenza B PCR NEGATIVE FOR FLU B (NEGATIVE) RSV (PCR) NEGATIVE FOR RSV (NEGATIVE) Medications Given: Discontinued Medications Azithromycin (Zithromax) 500 mg PO EDNOW ONE PRN Reason: Protocol Stop: 08/20/17 23:26 Last Admin: 08/21/17 00:47 Dose: Not Given Enoxaparin Sodium (Lovenox) 70 mg SC ONCE ONE Stop: 08/21/17 01:37 Last Admin: 08/21/17 03:05 Dose: 70 mg Sodium Chloride (Ns) 500 mls @ 1,000 mls/hr IV EDNOW ONE PRN Reason: Protocol Stop: 08/20/17 22:50 Last Admin: 08/21/17 00:06 Dose: 500 mls Ceftriaxone Sodium/Dextrose (Rocephin 1 Gm (Premix)) 50 mls @ 100 mls/hr IV EDNOW ONE PRN Reason: Protocol Stop: 08/20/17 23:54 Last Admin: 08/20/17 23:59 Dose: 50 mls Sodium Chloride (Ns) 1,000 mls @ 0 mls/hr IV EDNOW ONE; Wide Open PRN Reason: Protocol Stop: 08/20/17 23:40 Last Admin: 08/20/17 23:58 Dose: 1,000 mls Azithromycin 500 mg/ Sodium (Chloride) 255 mls @ 255 mls/hr IV EDNOW ONE PRN Reason: Protocol Stop: 08/21/17 00:50 Last Admin: 08/21/17 00:40 Dose: 255 mls Departure - Departure Disposition: [facility] Inpatient Acute Clinical Impression: Chronic obstructive pulmonary disease with acute exacerbation, Pneumonia, Pulmonary embolism Condition: Critical
[2017-08-20] MEDS ORDERED: AZITHROMYCIN 250 MG TAB PO ONE (23:25)
[2017-08-20] MEDS ORDERED: NS 1,000 ML IV ONE (23:39)
[2017-08-20 23:41] LABS: PLATELET COUNT 132 10^3/uL (150-400)
[2017-08-20] MEDS ORDERED: ALBUTEROL 3 ML DEYVIAL IH PRN (23:44)
[2017-08-20] MEDS ORDERED: ONDANSETRON 4 MG/2 ML VIAL IVP PRN (23:44)
[2017-08-20] MEDS ORDERED: AZITHROMYCIN IV 500 MG in NS 250 ML IV ONE (23:51)
[2017-08-21] MEDS ORDERED: IOPAMIDOL (ISOVUE 370) 100 ML BTL IV ONE (00:21)
--- NOTE | 2017-08-21 00:58 | PDGENHP ---
History and Physical - Chief Complaint Shortness of breath - History of Present Illness 82 yo F w/ hx of COPD, CHRF (2-3 L/min O2 @ b/l), AF, and dementia presents with shortness of breath. Patient states she has felt short of breath for several days. Per report this was associated with cough and wheezing. History is severely limited by patient's dementia. She cannot recall details of her presentation but appears relatively comfortable on my evaluation. When EMS arrived at her residence she was tachypneic with O2 sats of 79-83 on her usual 3 L O2. History Information - Allergies/Home Medication List Allergies/Adverse Reactions: Ngzegat-Veb-Szx Reductase Inhibitor Allergy (Unknown, Verified 06/12/17 04:42) Vomiting Sulfa (Sulfonamide Antibiotics) Allergy (Unknown, Verified 06/12/17 04:42) Itching atorvastatin calcium [From Lipitor] Allergy (Verified 06/12/17 04:42) ciprofloxacin [From Cipro] Allergy (Verified 06/12/17 04:42) ciprofloxacin HCl [From Cipro] Allergy (Verified 06/12/17 04:42) Estrogens Allergy (Verified 06/12/17 04:42) Nitrofuran Analogues Allergy (Verified 06/12/17 04:42) nitrofurantoin Allergy (Verified 06/12/17 04:42) potassium Allergy (Verified 06/12/17 04:42) LEG CRAMPS,GI Quinolones Allergy (Verified 06/12/17 04:42) Home Medications: Docusate Sodium [Colace 100 MG (*)] 100 mg PO BID 12/12/14 [Last Taken 04/21/16 08:00] Cholecalciferol Vit D3 [Vitamin D3 (*)] 1,000 unit PO DAILY 01/02/15 [Last Taken 04/21/16] Polyethylene Glycol 3350 [Miralax 17 gm (*)] 17 gm PO BID PRN 04/06/15 [Last Taken 04/21/16 08:00] Ascorbic Acid [Vitamin C 500 mg (*)] 500 mg PO DAILY 09/28/15 [Last Taken ] DULoxetine [Cymbalta 60 MG (*)] 60 mg PO HS 04/21/16 [Last Taken 04/20/16] Gabapentin [Neurontin] 600 mg PO TID 04/21/16 [Last Taken 04/21/16 08:00] ALPRAZolam [Xanax 1 MG (*)] 2 mg PO HS PRN 05/31/17 [Last Taken Unknown] HYDROmorphone HCL [Dilaudid 4 mg (*)] 4 mg PO Q4H PRN 05/31/17 [Last Taken Unknown] Levothyroxine [Synthroid 137 mcg (*)] 137 mcg PO DAILY06 05/31/17 [Last Taken Unknown] Ondansetron Odt [Zofran Odt 4 mg (*)] 4 mg PO Q6H PRN 05/31/17 [Last Taken Unknown] I have personally reviewed and updated: family history, medical history - Past Medical History atrial fibrillation, COPD, dementia - Family History Additional family history: Asked, unable to provide - Social History Smoking Status: Former smoker Review of Systems Review of Systems: ROS: 10pt was reviewed & negative except for what was stated in HPI & below Physical Exam Physical Exam: Temp Pulse Resp BP Pulse Ox 36.6 C 89 19 102/65 95 08/21/17 00:00 08/21/17 00:00 08/21/17 00:00 08/21/17 00:00 08/21/17 00:00 O2 (L/minute) 6 Constitutional: not in pain, uncomfortable Eyes: PERRL, EOMI Ears, Nose, Mouth, Throat: moist mucous membranes, no oral mucosal ulcers Cardiovascular: regular rate and rhythym, no murmur, rub, or gallop Respiratory: no respiratory distress, inspiratory crackles (LLL) Gastrointestinal: normoactive bowel sounds, soft, non-tender abdomen Skin: warm, normal color Musculoskeletal: full muscle strength, no muscle tenderness Neurologic: CN II-XII Intact, other (A&Ox1) Lab Data & Imaging Review 08/20/17 23:30 08/20/17 23:30 WBC 4.01 10^3/uL (3.80-9.50) 08/20/17 23:30 RBC 3.77 10^6/uL (4.18-5.33) L 08/20/17 23:30 Hgb 10.8 g/dL (12.6-16.3) L 08/20/17 23:30 Hct 34.6 % (38.0-47.0) L 08/20/17 23:30 MCV 91.8 fL (81.5-99.8) 08/20/17 23:30 MCH 28.6 pg (27.9-34.1) 08/20/17 23: MCHC 31.2 g/dL (32.4-36.7) L 08/20/17 23: RDW 14.6 % (11.5-15.2) 08/20/17: Plt Count 132 10^3/uL (150-400) L 08/20/17 23: MPV 9.3 fL (8.7-11.7) 08/20/17 23:30 Neut % (Auto) 76.9 % (39.3-74.2) H 08/20/17: Lymph % (Auto) 13.7 % (15.0-45.0) L 08/20/17: [place] % (Auto) 3.7 % (4.5-13.0) L 08/20/17: Eos % (Auto) 5.0 % (0.6-7.6) 08/20/17: Baso % (Auto) 0.7 % (0.3-1.7) 08/20/17: Nucleat RBC Rel Count 0.0 % (0.0-0.2) 08/20/17: Absolute Neuts (auto) 3.08 10^3/uL (1.70-6.50) 08/20/17 23:30 Absolute Lymphs (auto) 0.55 10^3/uL (1.00-3.00) L 08/20/17 23:30 Absolute Monos (auto) 0.15 10^3/uL (0.30-0.80) L 08/20/17 23:30 Absolute Eos (auto) 0.20 10^3/uL (0.03-0.40) 08/20/17 23: Absolute Basos (auto) 0.03 10^3/uL (0.02-0.10) 08/20/17: Absolute Nucleated RBC 0.00 10^3/uL (0-0.01) 08/20/17: Immature Gran % 0.0 % (0.0-1.1) 08/20/17 23:30 Immature Gran # 0.00 10^3/uL (0.00-0.10) 08/20/17 23:30 D-Dimer 2.74 ug/mLFEU (0.00-0.50) H 08/20/17 23:30 VBG Lactic Acid 1.0 mmol/L (0.7-2.1) 08/20/17 23:30 Sodium 141 mEq/L (135-145) 08/20/17 23:30 Potassium 3.4 mEq/L (3.5-5.2) L 08/20/17 23:30 Chloride 98 mEq/L (97-110) 08/20/17:30 Carbon Dioxide 28 mEq/l (22-31) 08/20/17:30 Anion Gap 15 mEq/L (8-16) 08/20/17 23:30 BUN 15 mg/dL (7-23) 08/20/17:30 Creatinine 0.7 mg/dL (0.6-1.0) 08/20/17:30 Estimated GFR > 60 08/20/17:30 Glucose 144 mg/dL (70-100) H 08/20/17 23:30 Calcium 8.6 mg/dL (8.5-10.4) 08/20/17:30 Troponin I 0.092 ng/mL (0.000-0.034) H 08/20/17 23:30 NT-Pro-B Natriuret Pep 148 pg/mL (0-450) 08/20/17:30 Procalcitonin 0.08 ng/mL (0.02-0.10) 08/20/17 23:30 Nasal Influenza A PCR NEGATIVE FOR FLU A (NEGATIVE) 08/20/17 23:00 Nasal Influenza B PCR NEGATIVE FOR FLU B (NEGATIVE) 08/20/17 23:00 RSV (PCR) NEGATIVE FOR RSV (NEGATIVE) 08/20/17 23:00 Imaging Review: Imaging Impressions Chest X-Ray 08/20/17 22:21 Impression: 1. Left lower lobe pneumonia. 2. Recommend follow-up until clear. Assessment & Plan Assessment: 82 yo F w/ hx of COPD, CHRF (2-3 L/min O2 @ b/l), AF, and dementia presents with shortness of breath found to have elevated D-dimer and LLL infiltrate. Plan: 1. Acute on chronic HRF - Multifactorial from new pulmonary embolism, likely pneumonia, and possible COPD exacerbation, although not significantly wheezing on presentation. Noting afebrile w/ normal WBC and procalcitonin, doubt significant bacterial component. Currently requiring NRB to maintain O2 sats. - Admit to SDU for close monitoring - S/p Lovenox for PE - S/p CTX/Azithro in ED for CAP coverage - Will empirically treat for COPD exacerbation as below 2. COPD - Uses 3 L O2 at baseline. No clear wheezing on my exam but will treat for acute exacerbation noting increased O2 needs, productive cough, and severity of disease. - Azithromycin and prednisone for 5 days - Duonebs q6h agustin + albuterol PRN 3. Pulmonary embolism - Seemingly unprovoked with no prior history of VTE. Normal BNP with mild elevation in troponin, doubt significant R heart strain. - S/p Lovenox in ED - Will start apixaban tomorrow ([facility] [employer] formulary lists both apixaban and rivaroxaban as Tier 3/preferred agents) 4. LLL pneumonia - With associated effusion. Afebrile with normal WBC and procalcitonin not suggestive of significant bacterial involvement. - S/p CTX/Azithro in ED - Blood cultures - Will continue azithromycin for now, add CTX if worsening - If not improving, may need sampling of pleural effusion 4. Hx AF - In NSR on admission. 5. Alzheimer's dementia - A&Ox1 on admission, poor historian. Diet - Regular Code - Full Ppx - Therapeutic AC Dispo - Admit to SDU under inpatient status
[2017-08-21] MEDS ORDERED: ENOXAPARIN 60 MG/0.6 ML SYR SC ONE (01:36)
[2017-08-21 04:46] LABS: PLATELET COUNT 113 10^3/uL (150-400)
[2017-08-21] MEDS ORDERED: IPRATROPIUM/ALBUTEROL 3 ML DEYVIAL IH SCH (06:00)
[2017-08-21] MEDS ORDERED: predniSONE 20 MG TAB PO SCH (09:00)
[2017-08-21] MEDS ORDERED: AZITHROMYCIN 250 MG TAB PO SCH (09:00)
[2017-08-21] MEDS ORDERED: ENOXAPARIN 30 MG/0.3 ML SYR SC SCH (09:00)
[2017-08-21 09:47] LABS: INR 1.08 (0.83-1.16); PROTIME(PATIENT) 14.2 SEC (12.0-15.0)
--- NOTE | 2017-08-21 10:28 | PDMN ---
Medical Necessity Medical necessity: est los>2mn for acute on chronic hypoxemic resp failure r/t new PE, PNA, and possible COPD exacerbation; admit to ICU/SCU for close monitoring on abx and steroids, O2 per NRB @ up to 10L (baseline 3L), and nebs; comorbid afib and dementia; per order and H&P 08/20/17
[2017-08-21] MEDS ORDERED: ALPRAZolam 1 MG TAB PO PRN (10:35)
[2017-08-21] MEDS ORDERED: HYDROmorphONE/DILAUDID 4 MG TAB PO PRN (10:35)
[2017-08-21] MEDS ORDERED: POLYETHYLENE GLYCOL 3350 17 GM PKT PO PRN (10:35)
--- NOTE | 2017-08-21 10:58 | HOSPPROG ---
Hospitalist Progress Note Assessment/Plan: # acute on chronic (3L) resp failure d/t PE, pleural effusion # acute R sided PE - start heparin gtt post-thoracentesis; transition to PO tomorrow if stable # L sided pleural effusion, large - agree with thora; send for labs and cytology # possible pneumonia - will hold abx anbd follow # COPD - no wheezing currently # dementia - will complicate care; at risk for delirium # AF - NSR now Subjective: still feels very poorly, SOB Objective: Vital Signs Temp Pulse Resp BP Pulse Ox 36.1 C 87 19 110/62 95 08/21/17 07:43 08/21/17 07:43 08/21/17 07:43 08/21/17 07:43 08/21/17 07:43 Laboratory Results 08/21/17 04:35 08/21/17 04:35 08/20/17 08/21/17 08/22/17 05:59 05:59 05:59 Intake Total 2100 Balance 2100 PT 14.2 SEC (12.0-15.0) 08/21/17 09:15 INR 1.08 (0.83-1.16) 08/21/17 09:15 CTA reviewed discussed with Dr Vickers - Physical Exam Constitutional: chronically ill appearing Cardiovascular: regular rate and rhythym, no murmur, rub, or gallop Respiratory: respiratory distress (mild), other (diminished L sided BS) Gastrointestinal: soft, non-tender abdomen, no palpable masses ICD10 Worksheet Patient Problems: Problems Problem Status Onset Falls Active Pulmonary emphysema Chronic Afib - Atrial fibrillation Active Increased lipid Chronic Hypothyroidism Active Low back pain Chronic Hip pain Acute Pneumonia Acute Chronic Disease Mgmt/Transitional Care Acute Weakness Acute Chronic anemia Acute Dehydration Acute Chronic pain Acute Constipated Acute Chronic obstructive pulmonary disease with acute exacerbation Acute Pulmonary embolism Acute
[2017-08-21] MEDS ORDERED: IPRATROPIUM/ALBUTEROL 3 ML DEYVIAL IH PRN (11:00)
--- NOTE | 2017-08-21 11:08 | ASMTCASEMG ---
Living Arrangements What is your living Answers: With Child(perri) arrangement? Who do you live with? Type Of Residence What kind of residence do Answers: House you live in? Discharge Plan Comments Coordination Status Comments Notes: Patient is an 82yo female who was admitted for a pulmonary embolism, COPD, and acute on chronic HRF. Patient has dementia so is not a good historian. Patient lives with her daughter, Vaishali Wilson. PT/OT/EVAPORATOR/cardiac rehab have all been ordered. D/C plan TBD. CM will follow. Date Signed: 08/21/2017 11:07 AM Electronically Signed By:Angely Stewart LCSW
[2017-08-21] MEDS: GABAPENTIN 300 MG CAP PO SCH ×3 (11:32→20:44)
[2017-08-21] MEDS: LACTULOSE 20 GM/30 ML UDCUP PO SCH (11:32)
--- NOTE | 2017-08-21 14:30 | GCON ---
[f rep st] CONSULTATION PULMONARY CRITICAL CARE CONSULT DATE OF CONSULTATION: 08/21/2017 HISTORY OF PRESENT ILLNESS: This patient is an 82-year-old female with a history of COPD and oxygen dependency, atrial fibrillation, and dementia, who presented with shortness of breath. This has appa rently gone on for the last several days, associated with cough and wheezing. The patient is unable to recall many details about what has happened. EMS arrived at her residence, and she was on 3 L wit h an oxygen saturation in the low 80s. She was brought to the emergency department, and a chest x-ra y was abnormal, followed by a CT angiogram that showed a right-sided pulmonary embolism and a moderat e to large left-sided pleural effusion. There were some concerns about both COPD exacerbation and pn eumonia, and she was treated with both antibiotics, DuoNeb, and Lovenox last night. Her white count on admission, however, was only 4, and her procalcitonin level was 0.08. Today, she said that she fe lt about the same as yesterday, but denied any cough, hemoptysis, weight loss, or change in appetite. PAST MEDICAL HISTORY: Includes atrial fibrillation, COPD, dementia, hypoxemia, hypothyroid. PAST SURGICAL HISTORY: None that we are aware of. FAMILY HISTORY: Noncontributory. SOCIAL HISTORY: She is a former smoker. The quantity is unknown. MEDICATIONS: At this time include Proventil, DuoNeb, Xanax, Eliquis, Colace, Cymbalta, Neurontin, Di laudid, Synthroid, Zofran, MiraLAX. PHYSICAL EXAM: VITAL SIGNS: She was afebrile, with a blood pressure of 110/62, heart rate 87, respi rations 19, oxygen saturation 95% on 3 L. She was obese and in no apparent distress. Able to speak in full sentences without using accessory muscles for breathing. HEENT: Pupils equally round and romeo ctive to light, nonicteric and noninjected. Mucous membranes are moist, without erythema or exudate. NECK: Supple. I could not detect jugular vein distention, was difficult to tell due to her obesit y. LUNGS: Breath sounds were diminished bilaterally, but I did not hear any wheezing and reasonable gas exchange. HEART: Regular rate and rhythm, but was also diminished. ABDOMEN: Soft, nontender, nondistended, without hepatosplenomegaly. EXTREMITIES: Showed maybe trace edema in her feet, but ot herwise no clubbing, cyanosis or edema. NEUROLOGICAL: Exam is grossly nonfocal. SKIN: Warm and dry , without rash. LABORATORY DATA: Her white count this morning is 2.7, hematocrit of 30.2, and platelets of 113. Bas ic metabolic panel was unremarkable. Flu swab was negative, as was RSV. BNP was 148. Procalcitonin 0.08. ASSESSMENT/PLAN: 1. Pulmonary embolism that apparently is unprovoked at this time. I am unaware of any recent travel , trauma, surgeries or other major risk factors, other than her obesity. She is being treated with a nticoagulants at this time. I have asked to have her Lovenox and Eliquis withheld this morning so sukhjinder armando can undergo thoracentesis. 2. Pleural effusion. The left-sided pleural effusion seems out of context. It is possible this is related to pulmonary infarct on small clot burden that may not be visible because of the concomitant atelectasis on the left side. In either case, I think a thoracentesis is indicated at this time. Sukhjinder armando will certainly feel a lot better, may reduce her oxygen requirement. 3. Chronic obstructive pulmonary disease by history. This does not feel like a COPD exacerbation to me. I think that the steroids are probably not necessary at this time. She can continue with her n ebs and oxygen as needed. 4. Diagnosis of pneumonia. I see no evidence of pneumonia with a low procalcitonin. I would discon tinue her antibiotics. /[id number]/MODL
[2017-08-21] MEDS ORDERED: LIDOCAINE 1% 300 MG/30 ML SDV ONE (15:00)
--- NOTE | 2017-08-21 19:01 | WOCRNPDOC ---
WOCRN Advanced Assessment Note - Skin Integrity Problem, Advanced Assess Left Buttock Pressure Injury Dressing Type: Open to Air Integumentary Issue Intervention: Dressing Applied Arlene Wound Tissue: Scarred Wound Bed Color: [place], Purple Wound Edges: Well Defined Site Measurement - Head-to-Toe Length X Width X Depth (cm): 4.4x3.5xDTI Pressure Injury Stage: Deep Tissue Injury (DTI) Pressure Injury Present on Admit: Yes Skin Integrity Problem Comment: Patient rolled to right side with assist from CHRISTINE Bales. Patient with well defined area of darkened purple skin on bilateral buttocks, consistant with DTI. The arlene-wound tissue is pink with scarring indicating that these wounds have been present for some time. The patient is able to confirm this. Interestingly, the wounds are not located over a bony prominance which is typical of a pressure injury. I suspect the patient remains seated on a commode, or donut, or other similar device although the patient is unable to verify/confirm this. The skin remains intact throughout at this time but wound care will continue to follow as these wounds evolve. Will implement pressure relieving measures. Wound care will round again early next week. Right Buttock Pressure Injury Dressing Type: Open to Air Integumentary Issue Intervention: Dressing Applied Arlene Wound Tissue: Scarred Wound Bed Color: [place], Purple Site Measurement - Head-to-Toe Length X Width X Depth (cm): 4x2.5xDTI Pressure Injury Stage: Deep Tissue Injury (DTI) Pressure Injury Present on Admit: Yes Skin Integrity Problem Comment: Wound to right buttock, consistant with DTI and similar in appearance to wound on left buttock. Wound care will round again on this patient early next week.
[2017-08-21] MEDS ORDERED: HEPARIN 10,000 UNIT/10 ML MDV (1,000 UNIT/ML) IVP PRN (20:00)
[2017-08-21] MEDS ORDERED: HEPARIN 10,000 UNIT/10 ML MDV (1,000 UNIT/ML) IVP ONE (20:00)
[2017-08-21] MEDS ORDERED: HEPARIN/DEXTROSE 500 ML IV SCH (20:00)
[2017-08-21] MEDS: DOCUSATE SODIUM 100 MG CAP PO SCH (20:44)
[2017-08-21] MEDS: DULoxetine 60 MG CAP PO SCH (20:44)
[2017-08-22 04:54] LABS: PLATELET COUNT 125 10^3/uL (150-400)
[2017-08-22] MEDS: LEVOTHYROXINE 137 MCG TAB PO SCH (06:14)
[2017-08-22] MEDS: LACTULOSE 20 GM/30 ML UDCUP PO SCH (08:02)
[2017-08-22] MEDS: GABAPENTIN 300 MG CAP PO SCH ×3 (08:02→20:56)
[2017-08-22] MEDS: DOCUSATE SODIUM 100 MG CAP PO SCH ×2 (08:02→20:56)
--- NOTE | 2017-08-22 09:16 | PDINTPN ---
Radar Repairer Progress Note Assessment/Plan: Assessment/plan: 82 F with COPD/O2, afib and dementia admitted 08/20/17 c/o SOB and hypoxia despite usual O2 at 3 lpm. CTA showed large volume right-sided PE and moderate left effusion. WBC and procalcitonin were low. Patients historical abilities are quite impaired so hard to know what happened, but no strong clinical indicators of PNA or COPD exacerbation. * PE- apparently unprovoked and initially treated with lovenox, but changed to heparin drip pending additional work-up. Can resume po anticoagulants. I would favor 6 months of treatment given the lack of historical details. Consider alternate to eliquis, since she apparently had a PE despite this drug. * Pleural effusion- tapped and consistent with non-specific exudate. Cytology pending. * PTX- tiny post-procedure. No chest tube indicated. Keep her on O2 regardless of sat and recheck CXR in AM. * COPD- stable- no systemic steroids required. Subjective: no events overnight, tiny ptx after thoracentesis yesterday- asymptomatic Objective: Vital Signs Temp Pulse Resp BP Pulse Ox 36.8 C 78 19 105/62 92 08/22/17 07:50 08/22/17 07:50 08/22/17 07:50 08/22/17 07:50 08/22/17 07:50 Microbiology 08/21/17 16:05 Gram Stain - Final Thoracic Fluid - Aspirate Laboratory Results 08/22/17 04:35 08/22/17 04:35 08/21/17 08/22/17 08/23/17 05:59 05:59 05:59 Intake Total 2100 861 Balance 2100 861 PT 14.2 SEC (12.0-15.0) 08/21/17 09:15 INR 1.08 (0.83-1.16) 08/21/17 09:15 Physical Exam - Physical Exam General Appearance: alert, no apparent distress, obese, other (poor historian) EENT: PERRL/EOMI Neck: supple Respiratory: lungs clear, decreased breath sounds, No respiratory distress, No accessory muscle use Cardiac/Chest: irregularly irregular, No edema Abdomen: non-tender, soft, No distended Skin: normal color, warm/dry, No cyanosis Lymphatic: no adenopathy Extremities: No pedal edema Neuro/Psych: alert, normal mood/affect, cognition abnormalities ICD10 Worksheet Patient Problems: Problems Problem Status Onset Chronic obstructive pulmonary disease with acute exacerbation Acute Pneumonia Acute Pulmonary embolism Acute Afib - Atrial fibrillation Active Falls Active Hypothyroidism Active Chronic Disease Mgmt/Transitional Care Acute Chronic anemia Acute Chronic pain Acute Constipated Acute Dehydration Acute Hip pain Acute Weakness Acute Increased lipid Chronic Low back pain Chronic Pulmonary emphysema Chronic
[2017-08-22] MEDS: APIXABAN 5 MG TAB PO SCH ×2 (10:00→20:56)
--- NOTE | 2017-08-22 10:50 | HOSPPROG ---
Hospitalist Progress Note Assessment/Plan: # acute on chronic (3L) resp failure d/t PE, pleural effusion - O2 down today - ok for med surg # acute R sided PE - now on eliquis # L sided pleural effusion s/p thora - exudate; follow cultures, cytology # tiny ptx - recheck CXR tomorrow am # possible pneumonia - will hold abx and follow # pancytopenia - somewhat chronic - unclear if has underlying BM disorder # COPD - no wheezing currently # dementia - will complicate care; at risk for delirium - CM investigating living situation # a-fib/ppm - NSR now - eliqu Subjective: breathing feels better today Objective: Vital Signs Temp Pulse Resp BP Pulse Ox 36.8 C 78 19 105/62 92 08/22/17 07:50 08/22/17 07:50 08/22/17 07:50 08/22/17 07:50 08/22/17 07:50 Microbiology 08/21/17 16:05 Gram Stain - Final Thoracic Fluid - Aspirate Laboratory Results 08/22/17 04:35 08/22/17 04:35 08/21/17 08/22/17 08/23/17 05:59 05:59 05:59 Intake Total 2100 861 Balance 2100 861 PT 14.2 SEC (12.0-15.0) 08/21/17 09:15 INR 1.08 (0.83-1.16) 08/21/17 09:15 - Physical Exam Constitutional: unkempt Cardiovascular: no murmur, rub, or gallop, irregularly irregular Respiratory: no rales or rhonchi, inspiratory crackles (mild R sided), No clear to auscultation Gastrointestinal: soft, non-tender abdomen, no palpable masses ICD10 Worksheet Patient Problems: Problems Problem Status Onset Falls Active Pulmonary emphysema Chronic Afib - Atrial fibrillation Active Increased lipid Chronic Hypothyroidism Active Low back pain Chronic Hip pain Acute Pneumonia Acute Chronic Disease Mgmt/Transitional Care Acute Weakness Acute Chronic anemia Acute Dehydration Acute Chronic pain Acute Constipated Acute Chronic obstructive pulmonary disease with acute exacerbation Acute Pulmonary embolism Acute
--- NOTE | 2017-08-22 12:17 | ASMTCMCOM ---
CM Note CM Note Notes: Patient lives with her daughter, Vaishali Wilson. PT/OT are recommending SNF rehab. Left a message for Vaishali to call me back. Will discuss home situation and D/C recommendations with daughter to determine d/c plan. Patient has dementia so d/c plan TBD with daughter, Vaishali. CM will follow. Date Signed: 08/22/2017 12:16 PM Electronically Signed By:Angely Stewart LCSW
--- NOTE | 2017-08-22 15:22 | ASMTCMCOM ---
CM Note CM Note Notes: Spoke with daughter Vaishali who would like her mother to do SNF rehab with [facility] and then have her remain as a permanent resident. Referral was made to [facility]. Vaishali, patient's daughter has already started application for LTC Medicaid. Hopefully, [facility] social work faculty member can assist Vaishali with the final part of the process while her mother is completing her rehab program. Vaishali did go through the spin down process with them and her mother does not have any money left except for her social security, Medicare, and Medicaid to be finalized. CM will follow. Date Signed: 08/22/2017 03:21 PM Electronically Signed By:Angely Stewart LCSW
[2017-08-22] MEDS: DULoxetine 60 MG CAP PO SCH (20:56)
[2017-08-23 04:46] LABS: PLATELET COUNT 121 10^3/uL (150-400)
[2017-08-23] MEDS: LEVOTHYROXINE 137 MCG TAB PO SCH (05:50)
[2017-08-23] MEDS: DOCUSATE SODIUM 100 MG CAP PO SCH ×2 (09:05→20:03)
[2017-08-23] MEDS: LACTULOSE 20 GM/30 ML UDCUP PO SCH (09:05)
[2017-08-23] MEDS: GABAPENTIN 300 MG CAP PO SCH ×3 (09:05→20:03)
[2017-08-23] MEDS: APIXABAN 5 MG TAB PO SCH ×2 (09:05→20:03)
[2017-08-23] MEDS: DOXYCYCLINE HYCLATE 100 MG CAP/TAB PO SCH ×2 (10:36→20:03)
[2017-08-23] MEDS ORDERED: IOPAMIDOL (ISOVUE-300) 100 ML BTL ONE ×2 (11:07→16:49)
[2017-08-23] MEDS: ONDANSETRON DISINTEGRATING 4 MG TAB PO PRN (11:11)
[2017-08-23] MEDS: ACETAMINOPHEN 325 MG TAB PO PRN (11:11)
--- NOTE | 2017-08-23 11:35 | HOSPPROG ---
Hospitalist Progress Note Assessment/Plan: # acute on chronic (3L) resp failure d/t PE, pleural effusion - resolved # acute R sided PE - now on eliquis - would like to get CT abd to eval for malignancy, but patient refusing # L sided pleural effusion s/p thora - exudate; follow cultures, cytology - check CXR tomorrow to eval for recurrence - echo today # tiny ptx - resolved on CXR today # possible pneumonia - will start doxy, check resp panel # pancytopenia - somewhat chronic - unclear if has underlying BM disorder # COPD - no wheezing currently # dementia - will complicate care; at risk for delirium - was living with dtr - will plan on snf post-dc # a-fib/ppm - NSR now - eliquis Subjective: nothing acute overnight Objective: Vital Signs Temp Pulse Resp BP Pulse Ox 37.1 C 74 16 112/67 98 08/23/17 08:00 08/23/17 08:00 08/23/17 08:00 08/23/17 08:00 08/23/17 08:00 Microbiology 08/21/17 16:05 Gram Stain - Final Thoracic Fluid - Aspirate Laboratory Results 08/23/17 04:14 08/23/17 04:14 08/22/17 08/23/17 08/24/17 05:59 05:59 05:59 Intake Total 861 350 Balance 861 350 PT 14.2 SEC (12.0-15.0) 08/21/17 09:15 INR 1.08 (0.83-1.16) 08/21/17 09:15 cxr personally reviewed echo ordered - Physical Exam Constitutional: other (lying in ) Cardiovascular: regular rate and rhythym, no murmur, rub, or gallop Respiratory: no respiratory distress, other (diminished L sided BS) Gastrointestinal: soft, non-tender abdomen, no palpable masses ICD10 Worksheet Patient Problems: Problems Problem Status Onset Falls Active Pulmonary emphysema Chronic Afib - Atrial fibrillation Active Increased lipid Chronic Hypothyroidism Active Low back pain Chronic Hip pain Acute Pneumonia Acute Chronic Disease Mgmt/Transitional Care Acute Weakness Acute Chronic anemia Acute Dehydration Acute Chronic pain Acute Constipated Acute Chronic obstructive pulmonary disease with acute exacerbation Acute Pulmonary embolism Acute
--- NOTE | 2017-08-23 12:34 | ECHO ---
[email or web address] [address] [address] Main: [phone] Fax: Transthoracic Echocardiogram Name: LEEROY METZGER MR#: [id number] Study Date: 08/23/2017 Study Time: 09:55 AM Date of : 1935 Age: 82 year(s) Height: 165.1 cm (65 in.) Weight: 69.85 kg (154 lb.) BSA: 1.77 m2 Gender: Female Examination: Echo Indication: Pleural effusion/pneumonia/pacer Image Quality: Contrast: Requested by: Main Ochoa BP: 112 mmHg/67 mmHg Heart Rate: Rhythm: Indication: Pleural effusion/pneumonia/pacer Procedure Staff Customer Order Clerk: Cee Hills [facility] Reading Physician: Michael Naranjo MD Requesting Provider: Conclusions: Normal size left ventricle. No LV hypertrophy. Normal global systolic LV function. The ejection fraction is estimated to be 65-70 %. Normal diastolic LV function. There is a pacemaker lead noted in the right ventricle. The mitral valve is normal in appearance and function. The aortic valve is normal in appearance and function. The tricuspid valve is normal in appearance and function. The pulmonary artery pressure is normal. Measurements: Chambers Valvular Assessment AV/MV Valvular Assessment TV/PV Normal Normal Normal Name Value Range Name Value Range Name Value Range Ao Jaz (MM): 3.4 cm (2.2 cm-3.7 AV meanP mmHg ( - ) TR Vmax: 2.73 mm/s ( - ) cm) MV E Vmax: 0.63 m/s ( - ) TR PGmax: 30 mmHg ( - ) LVDd (2D): 3.7 cm (3.9 cm-5.3 MV A Vmax: 1.00 m/s ( - ) syst. PAP: 35 mmHg ( - ) cm) MV E/A: 0.63 ( - ) EF Range: 65-70 % Continued Measurements: Chambers Valvular Assessment AV/MV Valvular Assessment TV/PV Name Value Name Value Name Value LADs: 2.9 cm MV E' Septal: 0.06 m/s CVP (est.): 5 mmHg MV E/E' Septal: 9.80 MV E/E' Lateral: 8.50 Patient: LEEROY METZGER Study Date: 08/23/2017 Page 1 of 2 09:55 AM Findings: Left Ventricle: Normal size left ventricle. No LV hypertrophy. Normal global systolic LV function. The ejection fraction is estimated to be 65-70 %. No regional wall motion abnormality. Normal diastolic LV function. Right Ventricle: Normal size right ventricle. There is a pacemaker lead noted in the right ventricle. There is a moderator band noted in the right ventricle. Mitral Valve: The mitral valve is normal in appearance and function. Aortic Valve: The aortic valve is normal in appearance and function. Tricuspid Valve: The tricuspid valve is normal in appearance and function. Mild tricuspid regurgitation is present. The pulmonary artery pressure is normal. Pulmonic Valve: Pulmonary valve not well visualized. Aorta: The aorta is normal. Pericardium: Trivial pericardial effusion. Left side pleural effusion. (No Signature Object) Patient: LEEROY METZGER Study Date: 08/23/2017 Page 2 of 2 09:55 AM D:_[id number]
--- NOTE | 2017-08-23 16:12 | ASMTCMCOM ---
CM Note CM Note Notes: Chart reviewed. Met with daughter who is primary phys assistant for her mother and it has become overwhelming. [facility] has denied patient. She does have a private caregiver that could assist with patient transition and care. We discussed possibility of [facility] and I placed a few other referrals as well. Emotional support provided. Referrals via allscripts. Awaiting response.CM to follow Date Signed: 08/23/2017 04:11 PM Electronically Signed By:Radha Stringer RN
[2017-08-23] MEDS: DULoxetine 60 MG CAP PO SCH (20:03)
[2017-08-24] MEDS: ACETAMINOPHEN 325 MG TAB PO PRN (00:07)
[2017-08-24] MEDS: ONDANSETRON DISINTEGRATING 4 MG TAB PO PRN ×2 (00:08→14:11)
[2017-08-24] MEDS: LEVOTHYROXINE 137 MCG TAB PO SCH (05:33)
[2017-08-24] MEDS: DOCUSATE SODIUM 100 MG CAP PO SCH ×3 (09:03→20:45)
[2017-08-24] MEDS: LACTULOSE 20 GM/30 ML UDCUP PO SCH ×3 (09:03→14:11)
[2017-08-24] MEDS: APIXABAN 5 MG TAB PO SCH ×4 (09:03→20:45)
[2017-08-24] MEDS: GABAPENTIN 300 MG CAP PO SCH ×5 (09:03→20:45)
[2017-08-24] MEDS: DOXYCYCLINE HYCLATE 100 MG CAP/TAB PO SCH ×4 (09:03→20:45)
[2017-08-24] MEDS ORDERED: CEPACOL LOZENGE PO PRN (12:31)
[2017-08-24] MEDS ORDERED: diphenhydrAMINE 25 MG CAP PO ONE ×2 (14:07→14:08)
--- NOTE | 2017-08-24 14:10 | HOSPPROG ---
Hospitalist Progress Note Assessment/Plan: # acute on chronic (3L) resp failure d/t PE, pleural effusion - resolved - at baseline # rash - unclear what this is from; will give a dose of benadryl # acute R sided PE - now on eliquis - CT abd without clear malignancy; there were a few incidentals seen - discussed with daughter, will not workup further # L sided pleural effusion s/p thora - exudate - discussed with Dr Mcfarland; old CXR from 06/12/17 reviewed; most likely this is a traumatic plerual effusion from May - cytology needs follow-up - needs a CXR a few weeks post-dc to eval for recurrence # tiny ptx - resolved on f/u CXR # possible pneumonia - will start doxy, resp panel negative # pancytopenia - somewhat chronic - unclear if has underlying BM disorder # COPD - no wheezing currently # dementia - will complicate care; at risk for delirium - was living with dtr - will plan on snf post-dc # depression - she is tearful today; already on cymbalta # a-fib/ppm - NSR now - eliquis - ppm interrogated here - should f/u Dr Moffett as outpatient # dispo - looking at SNF - will likely need long-term placement Subjective: tearful today; depressed; visited multiple times, discussed with CM and daughter Objective: Vital Signs Temp Pulse Resp BP Pulse Ox 36.9 C 85 16 124/82 H 80 L 08/24/17 08:00 08/24/17 08:00 08/24/17 08:00 08/24/17 08:00 08/24/17 10:03 Microbiology 08/21/17 16:05 Gram Stain - Final Thoracic Fluid - Aspirate Body Fluid Culture - Final 08/23/17 11:07 Respiratory Panel (PCR) - Final Nasal, Sinus - Swab No Organism Detected Laboratory Results 08/23/17 04:14 08/23/17 04:14 08/23/17 08/24/17 08/25/17 05:59 05:59 05:59 Intake Total 350 200 Balance 350 200 PT 14.2 SEC (12.0-15.0) 08/21/17 09:15 INR 1.08 (0.83-1.16) 08/21/17 09:15 - Time Spent With Patient Time Spent with Patient: greater than 35 minutes Time Spent with Patient: Greater than 35 minutes spent on this patients care, greater than 50% of time spent counseling, educating, and coordinating care regarding the above mentioned plan. - Physical Exam Constitutional: other (tearful; lying in bed) ICD10 Worksheet Patient Problems: Problems Problem Status Onset Chronic obstructive pulmonary disease with acute exacerbation Acute Pneumonia Acute Pulmonary embolism Acute Afib - Atrial fibrillation Active Falls Active Hypothyroidism Active Chronic Disease Mgmt/Transitional Care Acute Chronic anemia Acute Chronic pain Acute Constipated Acute Dehydration Acute Hip pain Acute Weakness Acute Increased lipid Chronic Low back pain Chronic Pulmonary emphysema Chronic
--- NOTE | 2017-08-24 16:54 | ASMTCMCOM ---
CM Note CM Note Notes: Pasrr completed an sent to listed SNF referrals. Date Signed: 08/24/2017 04:54 PM Electronically Signed By:Casi Mckeon LCSW
--- NOTE | 2017-08-24 18:32 | ASMTCMCOM ---
CM Note CM Note Notes: Reviewed chart regarding discharge plan of care, pt's progress. Spoke w/ Dr. Ochoa and CHRISTINE Mcclellan. Pt likely ready for discharge in the next day or two. Met w/ Dr. Ochoa and pt's dghtr, Vaishali. Dghtr very teary and upset pt not accepted at [facility]. Call placed to Catherine at [facility] - per Catherine, pt's care needs are higher than what [facility] can provide. Per Allscripts, pt tenatively accepted at [facility] ([facility]). Update provided to pt's dghtr. Dghtr pleased w/ [facility] acceptance (now her 1st choice). Call placed to Viri at [facility] to confirm acceptance. Viri had a few questions regarding pt's discharge date and senior living needs. Met w/ pt's dghtr again to discuss history and current needs. Per Vaishali, the pt was previously living in her own apartment (a few yrs ago) and started falling frequently. During this time she fractured both hips and her pelvis. The pt had 5 visits to [facility] during this time. After her discharge from [facility], the pt's dghtr placed her at [facility] with the understanding that they were doing a "spend down program." The dghtr was told at the end of the spend down, her mother would be guaranteed a Medicaid bed at [facility]. When all assets were depleted, [facility] said there were no Medicaid beds available and the pt was turned away. The pt has been living w/ her dgr since, but it has become too much for her to manage. The pt's dghtr is ultimately looking for terminal worker placement following this rehab stay. Update provided to Viri at [facility]. Per Viri, she only has a bed available on the first floor (dementia unit) in terminal worker care, in a semi-private room. Per Viri, the pt can potentially have this room and do rehab until a senior living Medicaid application can be completed. There are currently no rehab beds available. [facility]. Dghtr plans to provide 5 hrs of private duty help each day at [facility], to assist pt w/ adjusting to new environment. Update provided to Jennifer Meredith to verify if pt can have private duty help w/ her executive team on Friday08/25/17. Update provided to dghtr. PASRR completed. CM will cont to follow. Current Discharge Plan: [facility] (senior living care bed on dementia unit for rehab) Date Signed: 08/24/2017 06:32 PM Electronically Signed By:Moraima Mead RN
[2017-08-24] MEDS: DULoxetine 60 MG CAP PO SCH (20:45)
[2017-08-25] MEDS: LEVOTHYROXINE 137 MCG TAB PO SCH (05:32)
[2017-08-25] MEDS: ONDANSETRON DISINTEGRATING 4 MG TAB PO PRN (07:01)
[2017-08-25] MEDS: DOXYCYCLINE HYCLATE 100 MG CAP/TAB PO SCH ×2 (09:38→11:26)
[2017-08-25] MEDS: APIXABAN 5 MG TAB PO SCH (09:38)
[2017-08-25] MEDS: GABAPENTIN 300 MG CAP PO SCH ×2 (09:38→17:36)
[2017-08-25] MEDS: LACTULOSE 20 GM/30 ML UDCUP PO SCH ×2 (09:39→11:26)
[2017-08-25] MEDS: DOCUSATE SODIUM 100 MG CAP PO SCH ×2 (09:45→11:26)
[2017-08-25] MEDS: LIDOCAINE 2% VISCOUS 15 ML UDCUP PO PRN (11:40)
--- NOTE | 2017-08-25 11:54 | ASMTCMCOM ---
CM Note CM Note Notes: CM spoke w/ Dr. Luis regarding d/c POC. Pt will most likely d/c tomorrow. Pt reports having difficulties swallowing today. Mariposa from [facility] stopped by. Reports that pt is approriate for LTC. Reports that pt will be able to have private duty caregiving provided by daughterJacinda Clark, caregiver will be here at the hospital around 11AM tomorrow. CM to follow. Plan: [facility] Date Signed: 08/25/2017 11:53 AM Electronically Signed By:JORDAN Sharma
[2017-08-25 13:34] LABS: PLATELET COUNT 151 10^3/uL (150-400)
--- NOTE | 2017-08-25 13:42 | HOSPPROG ---
Hospitalist Progress Note Assessment/Plan: Assessment: 82-year-old female presents with acute on chronic respiratory failure in the setting of pleural effusion and acute pulmonary embolism Plan: # acute on chronic resp failure d/t PE, pleural effusion, evidenced by high- flow oxygen requirement up to 10 liters/minute on presentation with objective tachypnea respiratory rate of 26, home O2 requirement 3 L, and eventually able to wean down to 4 L, currently remains above baseline requirement # rash - unclear what this is from; has not responded to Benadryl; will apply topical steroids and gauge effect # acute R sided PE - present on admission, most likely contributing to respiratory failure, currently stable on Eliquis -CT of the abdomen without obvious malignancy # odynophagia - acute, new problem this provider, further workup indicated. Patient is completely unable to swallow today secondary to anterior throat discomfort, this has worsened during patient's hospitalization and is concerning given her possibility of malignancy -will get CT with IV contrast of the neck given her tender anterior cervical lymphadenopathy to rule out infection, abscess, underlying head or neck cancer -symptomatically treat with viscous lidocaine and gauge effect -supple lozenges as needed -does not have overt thrush in her posterior pharynx and but she does have somewhat unusual appearance of her mucous membrane with more of a glossy ill geographic appearance on the posterior hard palate as well as some small abrasions that are recently bleeding -get FLEET DRIVER eval # L sided pleural effusion s/p thora - exudate, most likely secondary to traumatic pleural effusion from May of 2017 -chest x-ray, personally interpreted, demonstrating persistent of left lower lobe effusion -cytology currently pending # tiny ptx - resolved on f/u CXR # possible pneumonia - respiratory viral panel negative, doxy day 2 of 5 -white blood cell count remains normal # pancytopenia - somewhat chronic - unclear if has underlying BM disorder # COPD - no wheezing currently # dementia - chronic, no e/o acute worsening, her sense of humor somewhat complicates how to interpret her interactions -requiring SNF for rehab, daughter will participate in care # depression - cont cymbalta # a-fib/ppm - NSR now -f/u Dr. Moffett, cont eliquis Diet. As tolerated PPx. High risk, on eliquis Code. Full at present, will attempt to verify w/ patient/daughter Dispo. D/w case mgmt, hold on DC today as she cannot safely marge PO intake Subjective: painful swallow, no PO intake this AM Objective: Vital Signs Temp Pulse Resp BP Pulse Ox 37.1 C 91 16 126/81 H 92 08/25/17 08:00 08/25/17 08:00 08/25/17 08:00 08/25/17 08:00 08/25/17 08:00 Microbiology 08/21/17 16:05 Gram Stain - Final Thoracic Fluid - Aspirate Body Fluid Culture - Final Laboratory Results 08/25/17 13:25 08/24/17 08/25/17 08/26/17 05:59 05:59 05:59 Intake Total 200 200 Balance 200 200 PT 14.2 SEC (12.0-15.0) 08/21/17 09:15 INR 1.08 (0.83-1.16) 08/21/17 09:15 - Physical Exam Constitutional: no apparent distress, not in pain, chronically ill appearing, uncomfortable Ears, Nose, Mouth, Throat: other (geographic mucosal pale appearance posterior hard palate, small abrasion w/ recently dried blood, unable to visualize tonsils ) Cardiovascular: systolic murmur (I/ at sternum), irregularly irregular, No tachycardia, No edema Respiratory: reduced air movement (left base), No expiratory wheeze, No inspiratory crackles, No bronchial breath sounds, No respiratory distress Gastrointestinal: normoactive bowel sounds, soft, non-tender abdomen, no palpable masses, No distension Skin: rash (blanchable, confluent) Neurologic: AAOx3, sensation intact bilaterally, No weakness Psychiatric: thought process linear, anxious, flat affect, other (concentration 0/7) ICD10 Worksheet Patient Problems: Problems Problem Status Onset Chronic obstructive pulmonary disease with acute exacerbation Acute Pneumonia Acute Pulmonary embolism Acute Afib - Atrial fibrillation Active Falls Active Hypothyroidism Active Chronic Disease Mgmt/Transitional Care Acute Chronic anemia Acute Chronic pain Acute Constipated Acute Dehydration Acute Hip pain Acute Weakness Acute Increased lipid Chronic Low back pain Chronic Pulmonary emphysema Chronic
[2017-08-25] MEDS ORDERED: IOPAMIDOL (ISOVUE-300) 100 ML BTL ONE (15:00)
--- NOTE | 2017-08-25 17:56 | EDPHY ---
H & P Stated Complaint: Unwitnessed fall Time Seen by Provider: 08/20/17 22:05 HPI/ROS: CHIEF COMPLAINT: The patient is brought to the emergency department after an unwitnessed fall in the hospital HISTORY OF PRESENT ILLNESS: The patient was brought to the emergency department after an unwitnessed fall in the hospital. She currently is being hospitalized for evaluation of a rash. She was diagnosed with thromboembolic disease recently and is currently anticoagulated. The patient is unable to provide much history to me surrounding the events that led to her fall. The patient does complain of bilateral hand pain. She is noted to have desquamation of the palms bilaterally. She has a number of superficial skin blisters noted. REVIEW OF SYSTEMS: A comprehensive 10 point review of systems is limited by confusion. Source: Patient Exam Limitations: No limitations - Personal History Tetanus Vaccine Date: 2002 - Medical/Surgical History Hx Asthma: No Hx Chronic Respiratory Disease: Yes Hx Diabetes: No Hx Cardiac Disease: Yes Hx Renal Disease: No Hx Cirrhosis: No Hx Alcoholism: No Hx HIV/AIDS: No Hx Splenectomy or Spleen Trauma: No Other PMH: pacemaker, afib, COPD, home O2, chronic pain, spinal surgrey, constipation, hyperlipidemia, pulmonary hypertension, HYPOTHYROID, anxiety orthostatic hypotension, DVT, gait instability, C. difficile colitis, Dementia, Lt and Rt hip fractures - Social History Smoking Status: Former smoker - Physical Exam Exam: General Appearance: Alert, no distress Head: Atraumatic Eyes: Pupils equal, round, reactive ENT, Mouth: No hemotympanum, no oral trauma Neck: Nontender, trachea midline Respiratory: No chest wall tender, subcutaneous air, lungs clear bilaterally Cardiovascular: Regular rate and rhythm Abdomen: Abdomen is soft and nontender, pelvis stable Skin: Multiple areas of desquamation, erythematous rash noted throughout the body Back: Tenderness to palpation bilateral arms and bilateral humerus Extremities: Nontender, full range of motion Neurological: GCS 14, moves all 4 extremities with 5/5 strength Constitutional: Initial Vital Signs Temperature (C) 36.4 C 08/20/17 21:46 Heart Rate 96 08/20/17 21:46 Respiratory Rate 18 08/20/17 21:46 Blood Pressure 101/73 08/20/17 21:46 O2 Sat (%) 99 08/20/17 21:46 O2 Delivery Mode Simple Mask O2 (L/minute) 5 Allergies/Adverse Reactions: Eawtyel-Uab-Tyv Reductase Inhibitor Allergy (Unknown, Verified 06/12/17 04:42) Vomiting Sulfa (Sulfonamide Antibiotics) Allergy (Unknown, Verified 06/12/17 04:42) Itching atorvastatin calcium [From Lipitor] Allergy (Verified 06/12/17 04:42) ciprofloxacin [From Cipro] Allergy (Verified 06/12/17 04:42) ciprofloxacin HCl [From Cipro] Allergy (Verified 06/12/17 04:42) Estrogens Allergy (Verified 06/12/17 04:42) Nitrofuran Analogues Allergy (Verified 06/12/17 04:42) nitrofurantoin Allergy (Verified 06/12/17 04:42) potassium Allergy (Verified 06/12/17 04:42) LEG CRAMPS,GI Quinolones Allergy (Verified 06/12/17 04:42) Home Medications: Medication Instructions Recorded Docusate Sodium [Colace 100 MG (*)] 100 mg PO BID 12/12/14 Cholecalciferol Vit D3 [Vitamin D3 1,000 unit PO DAILY 01/02/15 (*)] Polyethylene Glycol 3350 [Miralax 17 gm PO DAILY PRN 04/06/15 17 gm (*)] Ascorbic Acid [Vitamin C 500 mg 500 mg PO DAILY 09/28/15 (*)] DULoxetine [Cymbalta 60 MG (*)] 60 mg PO HS 04/21/16 Gabapentin [Neurontin] 600 mg PO TID 04/21/16 ALPRAZolam [Xanax 1 MG (*)] 2 mg PO HS PRN 05/31/17 Lactulose 20 gm PO DAILY #1000 ml 05/31/17 Levothyroxine [Synthroid 137 mcg 137 mcg PO DAILY06 05/31/17 (*)] Ondansetron Odt [Zofran Odt 4 mg 4 mg PO Q6H PRN 05/31/17 (*)] HYDROmorphone HCL [Dilaudid 4 mg 4 mg PO Q4 PRN 08/21/17 (*)] Medical Decision Making - Diagnostics Imaging Results: CT head without contrast: Negative for intracranial hemorrhage or skull fracture CT cervical spine: Negative for acute fracture Right humerus x-ray: Negative for acute fracture Left humerus x-ray: Negative for acute fracture Right hand x-ray: Negative for acute fracture Left hand x-ray: Negative for acute fracture All imaging studies reviewed by myself and discussed with radiologist. I discussed the case with Dr. Luis from Internal Medicine has requested the patient be transferred back to the medical-surgical floor. I will defer to the hospitalist service for continued evaluation of the patient's rash and desquamation. Imaging: Discussed imaging studies w/ a and p technician Radiologist ED Course/Re-evaluation: The patient was brought to the ED for evaluation of an unwitnessed fall. She had a CT scan of the head and cervical spine which demonstrated no injury. There is no obvious fracture noted in the upper extremities. The patient does have a rash with desquamation. The patient has been hospitalized for this condition. I will defer to the hospitalist for ongoing evaluation of the condition. Patient has been cleared from a traumatic standpoint will be transfer back to her floor. Differential Diagnosis: Differential diagnosis considered includes intracranial hemorrhage, cervical spine fracture, upper extremity fracture, arrhythmia, metabolic abnormality - Data Points Laboratory Results: Laboratory Results 08/20/17 23:30 08/20/17 23:30 Medications Given: Acetaminophen (Tylenol) 650 mg PO Q4HRS PRN PRN Reason: Pain, Mild/Fever, Can Take PO Stop: 02/16/18 23:43 Last Admin: 08/24/17 00:07 Dose: 650 mg Apixaban (Eliquis) 10 mg PO BID [facility] Stop: 02/17/18 08:59 Last Admin: 08/25/17 09:38 Dose: 10 mg Docusate Sodium (Colace) 100 mg PO BID [facility] Stop: 02/17/18 20:59 Last Admin: 08/25/17 11:26 Dose: Not Given Doxycycline Hyclate (Doxycycline Hyclate) 100 mg PO BID [facility] PRN Reason: Protocol Stop: 09/22/17 09:29 Last Admin: 08/25/17 11:26 Dose: Not Given Duloxetine HCl (Cymbalta) 60 mg PO HS [facility] Stop: 02/17/18 20:59 Last Admin: 08/24/17 20:45 Dose: 60 mg Gabapentin (Neurontin) 600 mg PO TID [facility] Stop: 02/17/18 10:44 Last Admin: 08/25/17 17:36 Dose: Not Given Lactulose (Cephulac) 20 gm PO DAILY [facility] Stop: 02/17/18 10:44 Last Admin: 08/25/17 11:26 Dose: Not Given Levothyroxine Sodium (Synthroid) 137 mcg PO DAILY06 [facility] Stop: 02/18/18 05:59 Last Admin: 08/25/17 05:32 Dose: Not Given Lidocaine (Lidocaine 2% Viscous) 5 ml PO Q6HRS PRN PRN Reason: Mucositis, Mouth Pain Stop: 02/21/18 11:12 Last Admin: 08/25/17 11:40 Dose: 5 ml Ondansetron HCl (Zofran) 4 mg IVP Q4HRS PRN PRN Reason: Nausea/Vomiting, Can't Take PO Stop: 02/16/18 23:43 Last Admin: 08/22/17 10:02 Dose: 4 mg Ondansetron HCl (Zofran Odt) 4 mg PO Q4HRS PRN PRN Reason: Nausea/Vomiting, Use 1st Stop: 02/16/18 23:43 Last Admin: 08/25/17 07:01 Dose: 4 mg Throat Lozenges (Cepacol Lozenge) 1 ea PO PRN PRN PRN Reason: Sore Throat Stop: 02/20/18 12:30 Last Admin: 08/24/17 14:13 Dose: 1 ea Discontinued Medications Albuterol/Ipratropium (Duoneb) 3 ml IH Q6HRS [facility] Stop: 02/17/18 05:59 Last Admin: 08/21/17 06:18 Dose: 3 ml Azithromycin (Zithromax) 500 mg PO EDNOW ONE PRN Reason: Protocol Stop: 08/20/17 23:26 Last Admin: 08/21/17 00:47 Dose: Not Given Azithromycin (Zithromax) 250 mg PO DAILY [facility] PRN Reason: Protocol Stop: 09/20/17 08:59 Last Admin: 08/21/17 08:42 Dose: 250 mg Diphenhydramine HCl (Benadryl) 25 mg PO ONCE ONE Stop: 08/24/17 14:08 Last Admin: 08/24/17 14:11 Dose: 25 mg Enoxaparin Sodium (Lovenox) 70 mg SC ONCE ONE Stop: 08/21/17 01:37 Last Admin: 08/21/17 03:05 Dose: 70 mg Heparin Sodium (Porcine) (Heparin Injection) 0 unit IVP ONCE ONE PRN Reason: Protocol Stop: 08/21/17 20:01 Last Admin: 08/21/17 20:06 Dose: 4,200 units Sodium Chloride (Ns) 500 mls @ 1,000 mls/hr IV EDNOW ONE PRN Reason: Protocol Stop: 08/20/17 22:50 Last Admin: 08/21/17 00:06 Dose: 500 mls Ceftriaxone Sodium/Dextrose (Rocephin 1 Gm (Premix)) 50 mls @ 100 mls/hr IV EDNOW ONE PRN Reason: Protocol Stop: 08/20/17 23:54 Last Admin: 08/20/17 23:59 Dose: 50 mls Sodium Chloride (Ns) 1,000 mls @ 0 mls/hr IV EDNOW ONE; Wide Open PRN Reason: Protocol Stop: 08/20/17 23:40 Last Admin: 08/20/17 23:58 Dose: 1,000 mls Azithromycin 500 mg/ Sodium (Chloride) 255 mls @ 255 mls/hr IV EDNOW ONE PRN Reason: Protocol Stop: 08/21/17 00:50 Last Admin: 08/21/17 00:40 Dose: 255 mls Heparin Sodium (Porcine) (Heparin 50 Units/Ml (Premix)) 500 mls @ 0 mls/hr IV CONT KISHAN; Per Protocol PRN Reason: Protocol Stop: 02/17/18 19:59 Last Admin: 08/21/17 20:12 Dose: 500 mls Prednisone (Prednisone) 40 mg PO DAILY [facility] Stop: 02/17/18 08:59 Last Admin: 08/21/17 08:42 Dose: 40 mg Departure - Departure Disposition: [facility] Inpatient Acute Clinical Impression: Chronic obstructive pulmonary disease with acute exacerbation, Pneumonia, Pulmonary embolism Condition: Good
[2017-08-25] MEDS: IPRATROPIUM/ALBUTEROL 3 ML DEYVIAL IH PRN (22:05)
[2017-08-25] MEDS ORDERED: FUROSEMIDE 20 MG/2 ML VIAL IVP ONE (22:28)
[2017-08-25] MEDS ORDERED: FUROSEMIDE 20 MG/2 ML VIAL ONE (22:34)
--- NOTE | 2017-08-25 22:50 | HOSPPROG ---
Hospitalist Progress Note Assessment/Plan: Hospitalist night float note Paged by floor to arrive to bedside for patient in acute respiratory distress. Patient recently transferred over from to the medical floor. She was subsequently found down on the ground from fall and transferred to the ER for further evaluation and trauma. Patient with multiple abrasions to her face arms knees. She was subsequently brought back to the medical floor a different room and since that time has been having increasing work of breathing and oxygen needs. Patient currently on 15 L non-rebreather with O2 sats at bedside of 92%. Patient with increased work of breathing. Initially patient had complained of some chest pain at time of my arrival patient denied any chest pain but just shortness of breath. Labs and imaging study briefly reviewed. Patient has a left sided infiltrate versus effusion. Repeat x-ray at bedside does appear to have an increase. Patient does have a history of right-sided heart failure. ABG was obtained and reviewed see chart. Will attempt diuresis IV with placement of Dickens for strict ins and outs. Patient will be transferred to the SCU for closer monitoring. I attempted to call patient's daughter Vaishali at both numbers available in the computer without response. A message was left with the unit phone number and requested call Back urgently on the ICU line. Code status listed as full. Objective: Vital Signs Temp Pulse Resp BP Pulse Ox 36.4 C 99 28 H 110/59 L 87 L 08/25/17 20:00 08/25/17 22:05 08/25/17 22:05 08/25/17 20:00 08/25/17 22:05 Laboratory Results 08/25/17 13:25 08/25/17 13:25 08/24/17 08/25/17 08/26/17 05:59 05:59 05:59 Intake Total 200 200 Balance 200 200 PT 14.2 SEC (12.0-15.0) 08/21/17 09:15 INR 1.08 (0.83-1.16) 08/21/17 09:15 ICD10 Worksheet Patient Problems: Problems Problem Status Onset Falls Active Pulmonary emphysema Chronic Afib - Atrial fibrillation Active Increased lipid Chronic Hypothyroidism Active Low back pain Chronic Hip pain Acute Pneumonia Acute Chronic Disease Mgmt/Transitional Care Acute Weakness Acute Chronic anemia Acute Dehydration Acute Chronic pain Acute Constipated Acute Chronic obstructive pulmonary disease with acute exacerbation Acute Pulmonary embolism Acute
--- NOTE | 2017-08-25 22:56 | GCON ---
[f rep st] CONSULTATION HISTORY OF PRESENT ILLNESS: Patient is an 82-year-old female who has been in the hospital for severa l days, was admitted for respiratory difficulties with pleural effusions. She has a history of COPD, pulmonary emboli, she is on anticoagulation for that, and she has dementia. I was consulted because she was found down in her room with obvious facial trauma, unclear etiology for the fall. PAST MEDICAL HISTORY: Includes atrial fibrillation, COPD, and dementia. SOCIAL HISTORY: She is an ex-smoker. MEDICATIONS: Zofran, Thyroid, Dilaudid, Xanax, Neurontin, Cymbalta, MiraLAX, vitamin D. ALLERGIES: Estrogen, Cipro, Lipitor, sulfa, statins, nitrofurantoin, quinolones. PHYSICAL EXAMINATION: GENERAL: Reveals an alert, cooperative 82-year-old female, who is in no acute distress. HEAD/NECK: Reveals some blunt trauma to her lip and left cheek. Pupils are normal. TMs are clear. Occlusion is normal. NECK: Supple, nontender. CHEST: Clear to auscultation and percu ssion. There are no palpable rib or clavicle fractures or sternal discomfort. CARDIAC: Reveals irr egularly irregular rhythm without murmurs. ABDOMEN: Soft and nontender without masses, organomegaly . EXTREMITIES: Reveal full range of motion, full pulses. IMPRESSION: Blunt facial trauma with a fall of uncertain etiology. Workup in the ER, including a he ad and neck CT scan, chest x-ray reveal no fractures. She also had hand and humerus x-rays which wer e negative for any fractures. PLAN: Local wound care and I will follow up in the a.m. /[id number]/MODL
[2017-08-26] MEDS: DOCUSATE SODIUM 100 MG CAP PO SCH ×3 (00:56→21:41)
[2017-08-26] MEDS: DOXYCYCLINE HYCLATE 100 MG CAP/TAB PO SCH ×2 (00:56→09:15)
[2017-08-26] MEDS: DULoxetine 60 MG CAP PO SCH ×2 (00:56→21:41)
[2017-08-26] MEDS: GABAPENTIN 300 MG CAP PO SCH ×3 (00:57→17:15)
[2017-08-26] MEDS: LEVOTHYROXINE 137 MCG TAB PO SCH (06:28)
[2017-08-26] MEDS: LACTULOSE 20 GM/30 ML UDCUP PO SCH (09:16)
[2017-08-26] MEDS ORDERED: HYDROmorphONE/DILAUDID 1 MG/ML INJ IVP PRN (09:46)
[2017-08-26] MEDS ORDERED: PIPERACILLIN NA/TAZO 4.5 GM in D5W 100 ML IV SCH (10:00)
[2017-08-26] MEDS ORDERED: HYDROmorphONE/DILAUDID 2 MG/ML INJ IVP PRN (10:00)
[2017-08-26] MEDS ORDERED: PIPERACILLIN/TAZO 4.5 GM/DEX 100 ML IV SCH (10:00)
[2017-08-26] MEDS ORDERED: ALTEPLASE 2 MG VIAL IVP PRN (10:17)
[2017-08-26] MEDS: ENOXAPARIN 80 MG/0.8 ML SYR SC SCH ×2 (10:19→21:36)
[2017-08-26] MEDS ORDERED: FUROSEMIDE 20 MG/2 ML VIAL IVP ONE ×2 (10:31→17:20)
[2017-08-26] MEDS: APIXABAN 5 MG TAB PO SCH (10:41)
[2017-08-26] MEDS: LIDOCAINE 2% VISCOUS 15 ML UDCUP PO PRN (11:20)
[2017-08-26] MEDS: CLOBETASOL 0.05% 15 GM CRTUBE TP SCH ×2 (12:00→21:41)
--- NOTE | 2017-08-26 14:50 | ASMTCMCOM ---
CM Note CM Note Notes: Patient in ICU after a fall and incresing respiratory needs. A Palliative meeting is planned for Friday with patient's daughter. [facility] has a LTC bed available where she can receive rehab benefits. Date Signed: 08/26/2017 02:49 PM Electronically Signed By:Casi Mckeon LCSW
--- NOTE | 2017-08-26 15:27 | WOCRNPDOC ---
WOCRN Advanced Assessment Note - Skin Integrity Problem, Advanced Assess Left Buttock Pressure Injury Dressing Type: Allevyn Life Dressing Description: Not Intact Exudate Amount: None Exudate Characteristic(s): None Arlene Wound Tissue: Blanching, Erythema, Raw Arlene Wound Swelling: Mild Wound Bed Color: Red Wound Bed Constitution: Red/[place] - Non Granular Tissue Site Odor: None Site Measurement - Head-to-Toe Length X Width X Depth (cm): new area opening medially, 0.5cm in diameter Pressure Injury Stage: Deep Tissue Injury (DTI) (evolving) Pressure Injury Present on Admit: Yes (see documentation) Skin Integrity Problem Comment: Small, partial-thickness opening noted in the medial aspect of area of deep tissue injury. This is an evolving DTI, which means the tissue damage could be deeper than current presentation indicates. Will have nursing add wound gel to the existing dressing changes, and continue w / pressure-relieving interventions. Right Buttock Pressure Injury Dressing Type: Open to Air Exudate Amount: None Exudate Characteristic(s): None Arlene Wound Tissue: Blanching, Erythema, Raw Arlene Wound Swelling: Mild Wound Bed Color: Red Wound Bed Constitution: Red/[place] - Non Granular Tissue Site Odor: None Site Measurement - Head-to-Toe Length X Width X Depth (cm): 0.2cm diameter partial-thickness opening medially Pressure Injury Stage: Deep Tissue Injury (DTI) (evolving) Pressure Injury Present on Admit: Yes (see documentation) Skin Integrity Problem Comment: Discrete, partial-thickness opening in medial aspect of deep tissue injury. This is an evolving deep tissue injury, and full depth and extent of the wound are not known yet. Periwound skin is intact and blanching. Pressure-relieving interventions are in place and should continue. Wound care will continue to follow.
[2017-08-26] MEDS: PIPERACILLIN/TAZO 4.5 GM/DEX 100 ML IV SCH ×3 (16:05→21:36)
[2017-08-26 16:18] LABS: PLATELET COUNT 193 10^3/uL (150-400)
[2017-08-26] MEDS: FUROSEMIDE 20 MG/2 ML VIAL IVP SCH (16:58)
[2017-08-26] MEDS: IPRATROPIUM/ALBUTEROL 3 ML DEYVIAL IH PRN (17:09)
[2017-08-26] MEDS ORDERED: LORazepam 2 MG/ML INJ IVP PRN (17:23)
[2017-08-26] MEDS ORDERED: VANCOMYCIN HCL/NORMAL SALINE 250 ML IV SCH (17:30)
--- NOTE | 2017-08-26 17:38 | PDINTPN ---
Closer On Progress Note Assessment/Plan: Assessment: * Hypoxemia: Likely due to oral secretion/aspiration. Improved with neb, increased oxygen flow * S/P fall, facial abrasions. * PE- apparently unprovoked, on Lovenox. Can resume po anticoagulants. I would favor 6 months of treatment given the lack of historical details. Consider alternate to eliquis, since she apparently had a PE despite this drug. * Pleural effusion- tapped and consistent with non-specific exudate. Cytology pending. * PTX- tiny post-procedure. No chest tube indicated. Keep her on O2 regardless of sat and recheck CXR in AM. * COPD- stable- no systemic steroids required. Plan: Vapotherm. Nebs. Repeat CXR in AM. 08/26/17 17:40 08/26/17 17:41 Subjective: CTSP due to increased oxygen needs. Having copious oral secretions, not always able to suction. Improved with neb. Objective: Vital Signs Temp Pulse Resp BP Pulse Ox 37.3 C 93 30 H 160/83 H 83 L 08/26/17 15:23 08/26/17 17:05 08/26/17 17:05 08/26/17 17:00 08/26/17 17:05 Laboratory Results 08/26/17 16:05 08/26/17 08:25 08/25/17 08/26/17 08/27/17 05:59 05:59 05:59 Intake Total 200 0 100 Output Total 1700 525 Balance 200 -1700 -425 PT 14.2 SEC (12.0-15.0) 08/21/17 09:15 INR 1.08 (0.83-1.16) 08/21/17 09:15 CXR 08/25: Stable. Images reviewed by me. Physical Exam - Physical Exam General Appearance: alert, no apparent distress EENT: other (facial abrasions/ecchymoses) Neck: normal inspection Respiratory: lungs clear Cardiac/Chest: regular rate, rhythm, No edema Abdomen: normal bowel sounds, non-tender Skin: warm/dry Extremities: normal inspection Neuro/Psych: alert, normal mood/affect, oriented x 3 ICD10 Worksheet Patient Problems: Problems Problem Status Onset Chronic obstructive pulmonary disease with acute exacerbation Acute Pneumonia Acute Pulmonary embolism Acute Afib - Atrial fibrillation Active Falls Active Hypothyroidism Active Chronic Disease Mgmt/Transitional Care Acute Chronic anemia Acute Chronic pain Acute Constipated Acute Dehydration Acute Hip pain Acute Weakness Acute Increased lipid Chronic Low back pain Chronic Pulmonary emphysema Chronic
--- NOTE | 2017-08-26 18:07 | HOSPPROG ---
Hospitalist Progress Note Assessment/Plan: Assessment: 82-year-old female presents with acute on chronic respiratory failure in the setting of pleural effusion and acute pulmonary embolism, c/b suspected aspiration pneumonia, dysphagia/odynophagia Plan: # acute on chronic resp failure d/t PE, pleural effusion, and acute worsening today up to 15LPM high flow, likely exacerbated by ongoing aspiration and inability to protect oral secretions -patient is clearly expressing desire for no further aggressive interventions, and I have shared this w/ her daughter (Vaishali Wilson, [facility]), who agrees that patient's wishes should be honored as DNR/DNI -given that patient has painful abrasions on face, would not recommend BiPAP -d/w daughter, if patient's resp distress worsens, recommend respiratory comfort care, and will give ativan 0.5mg IV now, gauge effect -palliative consultation scheduled for 8 a.m. tomorrow -high risk of mortality tonight, counseled daughter to contact family and suggested they come to bedside, critically ill w/ 60 minutes of critical care time spent today addressing this issue # suspected aspiration pneumonia - evidenced by persistent LLL infiltrate on CXR (personally interpreted), PCT 0.26, worsening resp distress and visible aspiration of oral secretions in setting of dysphagia -REPAIR SERVICE DISPATCHER recs ongoing NPO status -D#1 Vanco/Zosyn given that she has been hospitalized > 72hrs and at risk for MRSA/Pseudomonas -frequent suctioning by RN/RT # dysphagia/odynophagia - acute on 08/25, worsening today, unclear etiology, perhaps weakness in setting of dementia, but suspect that she has a pharyngeal component given focal mid neck tenderness w/ tender lymphadenopathy -patient did not tolerate neck CT w/ IV contrast for work-up, unable to VFSS today given resp status and painful/swollen lips s/p fall -cont NPO w/ suctioning, do not recommend feeding tube # rash - unclear what this is from; has not responded to Benadryl; applying topical clobetasol and gauging effect # acute R sided PE - present on admission, large volume, most likely contributing to respiratory failure, adjusted from eliquis to lovenox given PO status # L sided pleural effusion and suspected acute diastolic CHF exacerbation - s/p thora w/ exudative results, most likely secondary to traumatic pleural effusion from May of 2017, but possibly worsened by CHF -aggressively diuresing given worsening resp status -s/p 20mg IV lasix this AM, increased to 40mg IV this afternoon -cont estes, I/O # traumatic fall - acute, unwitnessed, occurred 08/25 PM w/ facial abrasions, L hand sloughing, R hand bullae, L should bullae -s/p trauma eval by Dr. Montero, no fxr on x-rays -cont local wound care, these are pressure injuries which were NOT poa, occurred on 08/25 as a result of fall # small, acute pneumothorax - resolved on f/u CXR # pancytopenia - somewhat chronic - unclear if has underlying BM disorder # COPD - no wheezing currently, patient not tolerating duonebs # dementia - chronic, no e/o acute worsening, her sense of humor somewhat complicates how to interpret her interactions # depression - cont cymbalta # a-fib/ppm - NSR now Diet. NPO PPx. High risk, on lovenox Code. adjusted to DNR/DNI this evening Dispo. palliative consult in AM, high risk of mortality during this hospitalization Subjective: patient in resp distresss, painful shoulders/arms/face Objective: Vital Signs Temp Pulse Resp BP Pulse Ox 37.3 C 88 30 H 160/83 H 92 08/26/17 15:23 08/26/17 17:51 08/26/17 17:51 08/26/17 17:00 08/26/17 17:51 Laboratory Results 08/26/17 16:05 08/26/17 08:25 08/25/17 08/26/17 08/27/17 05:59 05:59 05:59 Intake Total 200 0 100 Output Total 1700 525 Balance 200 -1700 -425 PT 14.2 SEC (12.0-15.0) 08/21/17 09:15 INR 1.08 (0.83-1.16) 08/21/17 09:15 - Physical Exam Constitutional: chronically ill appearing, uncomfortable, No no apparent distress (moderate), No not in pain (moderate) Cardiovascular: systolic murmur (II/ at sternum), No irregularly irregular, No tachycardia, No edema Respiratory: reduced air movement (left base), inspiratory crackles (left base) , respiratory distress (visible tachypnea, labored breathing, retractions), No expiratory wheeze, No bronchial breath sounds Gastrointestinal: soft, non-tender abdomen, no palpable masses, No normoactive bowel sounds (hypoactive bowel sounds) Skin: other (sloughing L palm, bullae on R palm, L shoulder, facial abrasions and lip edema, blanching erythema bilat UE) Neurologic: other (AAOx2 Person/Place) Psychiatric: anxious, flat affect, agitated ICD10 Worksheet Patient Problems: Problems Problem Status Onset Falls Active Pulmonary emphysema Chronic Afib - Atrial fibrillation Active Increased lipid Chronic Hypothyroidism Active Low back pain Chronic Hip pain Acute Pneumonia Acute Chronic Disease Mgmt/Transitional Care Acute Weakness Acute Chronic anemia Acute Dehydration Acute Chronic pain Acute Constipated Acute Chronic obstructive pulmonary disease with acute exacerbation Acute Pulmonary embolism Acute
[2017-08-26] MEDS: VANCOMYCIN 1 GM in NS 250 ML IV SCH (18:40)
[2017-08-26 20:36] VITALS: TEMP 98.6
[2017-08-27 04:19] VITALS: BP 117/58; PULSE 78; RESP 16; O2SAT 95
[2017-08-27 05:35] LABS: PLATELET COUNT 201 10^3/uL (150-400)
[2017-08-27] MEDS: PIPERACILLIN/TAZO 4.5 GM/DEX 100 ML IV SCH ×2 (05:51→09:44)
[2017-08-27] MEDS: VANCOMYCIN 1 GM in NS 250 ML IV SCH (05:52)
[2017-08-27] MEDS: HYDROmorphONE/DILAUDID 2 MG/ML INJ IVP PRN ×4 (06:04→13:41)
[2017-08-27] MEDS: GABAPENTIN 300 MG CAP PO SCH ×2 (06:15→09:57)
[2017-08-27] MEDS: LEVOTHYROXINE 137 MCG TAB PO SCH (06:34)
[2017-08-27] MEDS ORDERED: PROTOCOL POTASSIUM 1 DOSE MISC PRN (07:34)
[2017-08-27] MEDS: POTASSIUM Cl (KCl) 50 ML IV SCH ×2 (08:54→09:59)
[2017-08-27] MEDS: FUROSEMIDE 20 MG/2 ML VIAL IVP SCH (08:54)
[2017-08-27] MEDS: DOCUSATE SODIUM 100 MG CAP PO SCH (09:58)
[2017-08-27] MEDS: LACTULOSE 20 GM/30 ML UDCUP PO SCH (09:58)
[2017-08-27] MEDS: CLOBETASOL 0.05% 15 GM CRTUBE TP SCH (10:05)
[2017-08-27] MEDS ORDERED: GLYCOPYRROLATE 0.2 MG/1 ML VIAL IVP ONE (10:54)
[2017-08-27] MEDS: ENOXAPARIN 80 MG/0.8 ML SYR SC SCH (11:42)
--- NOTE | 2017-08-27 12:24 | PDIAF ---
- Diagnosis Diagnosis: hypoxic respiratory failure Code Status: Do Not Resuscitate - Medication Management Discharge Medications: Medications to Continue on Transfer Enoxaparin [Lovenox 80 MG (*)] 70 mg SC BID syr 08/27/17 [Last Taken Unknown] morphINE [Roxanol 10 mg/0.5 ml oral soln (*)] 5 - 10 mg PO Q2 #1 btl 08/27/17 [ Last Taken Unknown] Discharge Medications: Refer to the Discharge Home Medication list for PRN reason. - Orders Services needed: Registered Nurse Isolation Type: None Oxygen: 15L facemask Diet Recommendation: no restrictions on diet Diet Texture: Regular Texture Diet, Thin Liquids Additional: hospice eval and treat - Follow Up Care Current Providers and Referrals: Patient,NotPresent [Unknown] - As per Instructions
--- NOTE | 2017-08-27 20:20 | GDS ---
[f rep st] DISCHARGE SUMMARY DISCHARGE DIAGNOSES: 1. [id number] hypoxic respiratory failure. 2. Pulmonary embolism. 3. Pleural effusions. 4. Aspiration pneumonia. 5. Dysphagia. 6. Odynophagia. 7. Diastolic heart failure. 8. Traumatic fall with facial abrasions and multiple skin bullae. 9. Small acute pneumothorax. 10. Pancytopenia. 11. Chronic obstructive pulmonary disease. 12. Dementia. 13. Depression. HISTORY OF PRESENT ILLNESS: An 82-year-old female, with a complicated hospital course for acute-on-c hronic respiratory failure. For details of the patient's initial presentation, please see the Histor y and Physical dated 08/20/2017. CONSULTATIVE SERVICES: Include: 1. Trauma Surgery. 2. Pulmonary Critical Care. 3. Wound Care. HOSPITAL COURSE: Traumatic fall. While in the hospital, patient sustained trauma to the face as wel l as multiple bullae to the skin and a pneumothorax, was monitored very closely and the sequale of th is fall did lead to ultimate deterioration, including severe odynophagia, dysphagia, and worsening ac [id number] hypoxic respiratory failure. The decision was made after her fall and transfer to the ICU for stabilization that her requirements for high-flow oxygen at greater than 30 L, her discomfor t related to her traumatic injuries, and her frailty from her medical comorbidities all qualified her for comfort care. The daughter made the decision to transition to hospice on 08/26/2017. Patient w as evaluated by inpatient true hospice and was transferred on 08/27 for inpatient hospice care. /[id number]/MODL
== END 2017-08-27 14:00 | disposition hospice, home (50) | DRG 175 ==
LOC: EDUNIT# → F2N 08-21 01:30 → F3E 08-22 14:57 → F2N 08-26 00:22
PROVIDERS: ADMIT Student in an Organized Health Care Education/Training Program; ATTEND Hospitalist
PROC: 0W9B3ZZ Drainage of Left Pleural Cavity, Percutaneous Approach (ICD-10-PCS; principal; 2017-08-21)
PROC: 02HV33Z Insertion of Infusion Device into Superior Vena Cava, Percutaneous Approach (ICD-10-PCS; 2017-08-26)
DX: I26.99 Other pulmonary embolism without acute cor pulmonale (principal); J96.21 Acute and chronic respiratory failure with hypoxia; J91.8 Pleural effusion in other conditions classified elsewhere; J95.811 Postprocedural pneumothorax; S00.31XA Abrasion of nose, initial encounter; S00.81XA Abrasion of other part of head, initial encounter; S00.511A Abrasion of lip, initial encounter; S61.402A Unspecified open wound of left hand, initial encounter; S41.002A Unspecified open wound of left shoulder, initial encounter; W17.89XA Other fall from one level to another, initial encounter; Y92.230 Patient room in hospital as the place of occurrence of the external cause; Y99.8 Other external cause status; Z51.5 Encounter for palliative care; J69.0 Pneumonitis due to inhalation of food and vomit; R13.10 Dysphagia, unspecified; R13.0 Aphagia; D61.818 Other pancytopenia; J44.9 Chronic obstructive pulmonary disease, unspecified; I50.31 Acute diastolic (congestive) heart failure; Z99.81 Dependence on supplemental oxygen; I27.23 Pulmonary hypertension due to lung diseases and hypoxia; Z87.891 Personal history of nicotine dependence; I48.91 Unspecified atrial fibrillation; Z79.01 Long term (current) use of anticoagulants; Z95.0 Presence of cardiac pacemaker; R21 Rash and other nonspecific skin eruption; E78.5 Hyperlipidemia, unspecified; E03.9 Hypothyroidism, unspecified; F41.9 Anxiety disorder, unspecified; F32.9 Major depressive disorder, single episode, unspecified; G30.1 Alzheimer's disease with late onset; F02.80 Dementia in other diseases classified elsewhere, unspecified severity, without behavioral disturbance, psychotic disturbance, mood disturbance, and anxiety
CPT/HCPCS: 85520-90; 92526-GN; 92610-GN; 97110-GP; 97116-GP; 97162-GP; 97166-GO; 97530-GP; 97535-GO; C1751; G8978-GP-CL; G8979-GP-CJ; G8987-GO-CL; G8988-GO-CJ; G8996-GN-CI; G8997-GN-CI; G8998-GN-CH; J0456; J0696; J1170; J1644; J1650; J1940; J2060; J2405; J2543; J3370; J3480; J7512; Q9967